=== PATIENT | female | born 1935 | race Asian ===

== ENCOUNTER 2017-01-21 13:03 | Inpatient (IN) | payer OTHER, MEDICARE ==
[~2017-01-21] VITALS: Ht 160 cm; Wt 65.3 kg
[2017-01-21] VITALS (10 sets, daily range): BP systolic 114–139
[2017-01-21] MEDS ORDERED: DILTIAZEM HCL 25 MG/5 ML VIAL IVP ONE (13:15)
[2017-01-21] MEDS ORDERED: DILTIAZEM HCL 125 MG/25 ML VIAL IV ONE (13:16)
[2017-01-21] MEDS ORDERED: ADENOSINE 6MG/2ML VIAL ONE (13:33)
[2017-01-21 13:35] LABS: BASOPHILS # (AUTO) 0.1 K/uL (0.0-0.2); BASOPHILS % (AUTO) 1.4 % (0.0-2.0); LYMPHOCYTES # (AUTO) 1.1 K/uL (1.0-5.5); LYMPHOCYTES % (AUTO) 12.7 % (20.5-51.5); MEAN CORPUSCULAR HEMOGLOBIN 31 pg (27-31); MEAN CORPUSCULAR HGB CONC 33 % (32-36); MEAN CORPUSCULAR VOLUME 92 fL (79.0-98.0); MONOCYTES % (AUTO) 11.7 % (1.7-9.3); NEUTROPHILS # (AUTO) 6.2 K/uL (1.8-7.7); NEUTROPHILS % (AUTO) 74.2 % (40.0-70.0); PLATELET COUNT (AUTO) 174 K/uL (130-430); RED BLOOD CELL COUNT(AUTO) 3.61 MIL/uL (4.2-6.2); RED CELL DISTRIBUTION WIDTH 12.4 % (9.0-15.0); WHITE BLOOD COUNT (AUTO) 8.4 K/uL (4.8-10.8)
[2017-01-21 13:41] LABS: ANION GAP 23 (5-15); CALCIUM 8.1 mg/dL (8.4-11.0); CHLORIDE 107 mmol/L (98-107); POTASSIUM 4.9 mmol/L (3.5-5.1); SODIUM SERUM 141 mmol/L (136-145); UREA NITROGEN, BLOOD 63 mg/dL (8-21)
[2017-01-21 13:45] LABS: GLUCOSE 408 mg/dL (70-99)
[2017-01-21 13:47] LABS: ALANINE AMINOTRANSFERASE 90 U/L (12-78); ALBUMIN 3.5 g/dL (3.4-4.8); ASPARTATE AMINOTRANSFERASE 87 U/L (10-37); CREATINE KINASE, TOTAL 448 U/L (26-192); TOTAL BILIRUBIN 0.8 mg/dL (0.0-1.0); TOTAL PROTEIN, SERUM 6.1 g/dL (6.4-8.3)
[2017-01-21 13:52] LABS: INR 1.2 (0.8-1.2); PROTHROMBIN TIME 13.3 SECS (9.5-12.5)
[2017-01-21] MEDS ORDERED: NS 500 ML IV ONE ×2 (14:30→18:30)
[2017-01-21] MEDS ORDERED: INSULIN REGULAR, HUMAN 10 UNITS/0.1 ML INJ IVP ONE (14:30)
[2017-01-21 14:31] LABS: CKMB RELATIVE INDEX 0.8 (0.0-2.9); CREATINE KINASE MB 3.8 ng/mL (0-3.6)
[2017-01-21] MEDS ORDERED: COMMUNICATION ORDER XX ONE (14:45)
[2017-01-21] MEDS ORDERED: NACL 0.9% 1,000 ML IV SCH (17:30)
[2017-01-21] MEDS ORDERED: DEXTROSE 50% JECT 50 ML DISP.SYRIN IVP PRN (18:00)
[2017-01-21] MEDS ORDERED: LORazepam 2 MG/ML VIAL ONE (18:08)
[2017-01-21] MEDS ORDERED: 0.45% NACL 1,000 ML IV SCH (18:15)
[2017-01-21] MEDS ORDERED: LEVOFLOXACIN 500 MG/D5W 100 ML IV ONE (18:15)
[2017-01-21] MEDS: NACL 0.9% 1,000 ML IV SCH (18:42)
[2017-01-21] MEDS: INSULIN REGULAR, HUMAN 100 UNITS/ML, 10 ML VIAL (novoLIN R) SUBCUT PRN (20:33)
[2017-01-21] MEDS: HEPARIN SODIUM,PORCINE 5000 UNITS/ML VIAL SUBCUT SCH (20:34)
[2017-01-21] MEDS: cefTRIAXone 1 GM in D5W 50 ML IV SCH (20:35)
[2017-01-21 22:29] LABS: BILIRUBIN,URINE NEGATIVE (NEGATIVE); BLOOD, URINE 3+ (NEGATIVE); COLOR,URINE YELLOW (YELLOW); GLUCOSE,URINE 3+ (NEGATIVE); KETONES,URINE 2+ (NEGATIVE); LEUKOCYTE ESTERASE ,URINE NEGATIVE (NEGATIVE); NITRITE, URINE NEGATIVE (NEGATIVE); PH,URINE 5.5 (5.0-8.0); PROTEIN URINE TRACE (NEGATIVE); UROBILINOGEN,URINE 0.2 (0.2-1.0)
[2017-01-21 22:42] LABS: CLARITY/URINE HAZY (CLEAR)
[2017-01-21 22:43] LABS: BACTERIA,URINE FEW /HPF (None Seen); MUCUS,URINE None Seen /LPF (None Seen); WBC,URINE 0-3 /HPF (0-3)
[2017-01-22] VITALS (22 sets, daily range): BP systolic 95–141
[2017-01-22] MEDS: NACL 0.9% 1,000 ML IV SCH ×4 (00:55→20:55)
[2017-01-22] MEDS: DILTIAZEM HCL 125 MG in D5W 100 ML IV PRN ×2 (02:30→07:43)
[2017-01-22] MEDS: LORazepam 2 MG/ML VIAL IVP PRN ×3 (04:08→14:05)
[2017-01-22] MEDS: HALOPERIDOL LACTATE 5 MG/ML VIAL IVP PRN ×2 (06:25→13:51)
[2017-01-22] MEDS: INSULIN REGULAR, HUMAN 100 UNITS/ML, 10 ML VIAL (novoLIN R) SUBCUT PRN ×4 (06:31→22:04)
[2017-01-22 07:14] LABS: BASOPHILS % (AUTO) 0.3 % (0.0-2.0); EOSINOPHILS % (AUTO) 0.1 % (0.0-4.0); HEMATOCRIT 32.9 % (36-48); HEMOGLOBIN 10.9 g/dL (12.0-16.0); LYMPHOCYTES # (AUTO) 1.4 K/uL (1.0-5.5); LYMPHOCYTES % (AUTO) 12.4 % (20.5-51.5); MEAN CORPUSCULAR HEMOGLOBIN 31 pg (27-31); MEAN CORPUSCULAR HGB CONC 33 % (32-36); MEAN CORPUSCULAR VOLUME 92 fL (79.0-98.0); MONOCYTES # (AUTO) 1.4 K/uL (0.0-1.0); MONOCYTES % (AUTO) 12.7 % (1.7-9.3); NEUTROPHILS # (AUTO) 8.6 K/uL (1.8-7.7); NEUTROPHILS % (AUTO) 74.5 % (40.0-70.0); PLATELET COUNT (AUTO) 146 K/uL (130-430); RED BLOOD CELL COUNT(AUTO) 3.59 MIL/uL (4.2-6.2); RED CELL DISTRIBUTION WIDTH 12.5 % (9.0-15.0); WHITE BLOOD COUNT (AUTO) 11.4 K/uL (4.8-10.8)
[2017-01-22 07:40] LABS: ALANINE AMINOTRANSFERASE 148 U/L (12-78); ANION GAP 13 (5-15); ASPARTATE AMINOTRANSFERASE 119 U/L (10-37); CHLORIDE 111 mmol/L (98-107); CHOLESTEROL 97 mg/dL (<200); CREATININE 1.34 mg/dL (0.55-1.30); FREE T4 (FREE THYROXINE) 6.2 ng/dL (0.6-1.6); GLUCOSE 317 mg/dL (70-99); HDL CHOLESTEROL 33 mg/dL (>55); LDL CHOLESTEROL 59 mg/dL (<100); POTASSIUM 4.4 mmol/L (3.5-5.1); SODIUM SERUM 139 mmol/L (136-145); TOTAL BILIRUBIN 0.5 mg/dL (0.0-1.0); TOTAL PROTEIN, SERUM 5.7 g/dL (6.4-8.3); TRIGLYCERIDES 99 mg/dL (30-150); UREA NITROGEN, BLOOD 78 mg/dL (8-21)
[2017-01-22 07:54] LABS: THYROID STIMULATING HORMONE < 0.01 uIu/mL (0.34-4.82)
[2017-01-22] MEDS ORDERED: LORazepam 2 MG/ML VIAL IVP ONE (09:45)
[2017-01-22] MEDS ORDERED: METOPROLOL TARTRATE 5 MG/5 ML VIAL IVP PRN (10:00)
[2017-01-22] MEDS ORDERED: PROPRANOLOL HCL 10 MG TABLET (INDERAL) PO ONE (10:00)
[2017-01-22] MEDS ORDERED: METOPROLOL TARTRATE 5 MG/5 ML VIAL ONE ×2 (10:10→10:27)
[2017-01-22] MEDS: HEPARIN SODIUM,PORCINE 5000 UNITS/ML VIAL SUBCUT SCH ×2 (10:20→21:33)
[2017-01-22] MEDS ORDERED: SITA100T7 PO (11:09)
[2017-01-22] MEDS ORDERED: CIPR7.5D OT (11:09)
[2017-01-22] MEDS ORDERED: ACAR50TA5 PO (11:09)
[2017-01-22] MEDS ORDERED: PRAV10TA37 PO (11:09)
[2017-01-22] MEDS ORDERED: DICY10CA13 PO (11:09)
[2017-01-22] MEDS ORDERED: GLIM4TAB PO (11:09)
[2017-01-22] MEDS ORDERED: ESOM40CA PO ×2 (11:09)
[2017-01-22] MEDS ORDERED: PRAS5TAB3 PO (11:09)
[2017-01-22] MEDS ORDERED: ESCI5TAB10 PO (11:09)
[2017-01-22] MEDS ORDERED: LOSA25TA11 PO (11:09)
[2017-01-22] MEDS: PROPRANOLOL HCL 10 MG TABLET (INDERAL) PO SCH ×2 (14:00→21:57)
[2017-01-22] MEDS ORDERED: HALOPERIDOL LACTATE 5 MG/ML VIAL IVP PRN (15:00)
[2017-01-22] MEDS: cefTRIAXone 1 GM in D5W 50 ML IV SCH (21:32)
[2017-01-23] VITALS (26 sets, daily range): BP systolic 79–150
[2017-01-23] MEDS ORDERED: FUROSEMIDE 20 MG/2 ML VIAL IVP ONE
[2017-01-23] MEDS: NACL 0.9% 1,000 ML IV SCH (01:51)
[2017-01-23] MEDS: PROPRANOLOL HCL 10 MG TABLET (INDERAL) PO SCH ×3 (06:06→22:01)
[2017-01-23 07:16] LABS: ALANINE AMINOTRANSFERASE 784 U/L (12-78); ALBUMIN 3.3 g/dL (3.4-4.8); ANION GAP 13 (5-15); CALCIUM 8.2 mg/dL (8.4-11.0); CHLORIDE 113 mmol/L (98-107); CREATININE 2.08 mg/dL (0.55-1.30); GLUCOSE 54 mg/dL (70-99); SODIUM SERUM 141 mmol/L (136-145); TOTAL BILIRUBIN 1.1 mg/dL (0.0-1.0); UREA NITROGEN, BLOOD 93 mg/dL (8-21)
[2017-01-23 07:33] LABS: ASPARTATE AMINOTRANSFERASE 1327 U/L (10-37)
[2017-01-23 08:15] LABS: BASOPHILS % (AUTO) 0.2 % (0.0-2.0); HEMATOCRIT 39.8 % (36-48); HEMOGLOBIN 13.2 g/dL (12.0-16.0); LYMPHOCYTES % (AUTO) 5.2 % (20.5-51.5); MEAN CORPUSCULAR HEMOGLOBIN 31 pg (27-31); MEAN CORPUSCULAR HGB CONC 33 % (32-36); MEAN CORPUSCULAR VOLUME 93 fL (79.0-98.0); NEUTROPHILS # (AUTO) 15.9 K/uL (1.8-7.7); NEUTROPHILS % (AUTO) 83.8 % (40.0-70.0); PLATELET COUNT (AUTO) 106 K/uL (130-430); RED BLOOD CELL COUNT(AUTO) 4.26 MIL/uL (4.2-6.2); WHITE BLOOD COUNT (AUTO) 18.9 K/uL (4.8-10.8)
[2017-01-23] MEDS: HEPARIN SODIUM,PORCINE 5000 UNITS/ML VIAL SUBCUT SCH ×2 (08:31→20:45)
[2017-01-23 09:17] LABS: MONOCYTES % (AUTO) 10.8 % (1.7-9.3)
[2017-01-23] MEDS ORDERED: LEVOFLOXACIN 500 MG/D5W 100 ML IV ONE (09:30)
[2017-01-23] MEDS ORDERED: D5W 1,000 ML IV SCH (09:30)
[2017-01-23] MEDS ORDERED: HYDROCORTISONE SOD SUCC 100 MG/2 ML VIAL IVP ONE (09:30)
[2017-01-23] MEDS ORDERED: DEXTROSE 50% JECT 50 ML DISP.SYRIN IVP ONE (10:15)
[2017-01-23] MEDS ORDERED: SODIUM BICARBONATE 8.4% JECT 50 MEQ/50 ML SYRINGE ONE ×3 (10:29→14:49)
[2017-01-23] MEDS: D5/0.45 NS 1,000 ML IV SCH ×2 (10:32→19:53)
[2017-01-23 10:36] LABS: BLOOD GAS BASE EXCESS -20.8 mmol/L (-3.0-3.0); BLOOD GAS PH 7.069 (7.350-7.450)
[2017-01-23 10:37] LABS: ABG TOTAL HEMOGLOBIN 12.7 G/dL (12.0-18.0); BLOOD GAS COHb% 0.2 % (0.5-1.5); BLOOD GAS HHB 7.8 % (0.0-6.0); BLOOD O2Hb% 91.8 % (94.0-97.0)
[2017-01-23] MEDS ORDERED: SODIUM BICARBONATE 8.4% VIAL 50 MEQ/50 ML VIAL INJ ONE (10:45)
[2017-01-23 10:56] LABS: ANION GAP 15 (5-15); CALCIUM 8.1 mg/dL (8.4-11.0); CHLORIDE 113 mmol/L (98-107); CREATININE 2.59 mg/dL (0.55-1.30); FREE T4 (FREE THYROXINE) 5.7 ng/dL (0.6-1.6); GLUCOSE 121 mg/dL (70-99); SODIUM SERUM 140 mmol/L (136-145); UREA NITROGEN, BLOOD 97 mg/dL (8-21)
[2017-01-23] MEDS ORDERED: MIDAZOLAM HCL 2 MG/2 ML VIAL (VERSED) ONE (10:56)
[2017-01-23 11:10] LABS: POTASSIUM 6.4 mmol/L (3.5-5.1)
[2017-01-23] MEDS ORDERED: SODIUM POLYSTYRENE SULFONATE 15 GM/60 ML UDBTL NG ONE (11:15)
[2017-01-23] MEDS: SODIUM BICARBONATE 8.4% JECT 100 MEQ in D5W 1,000 ML IV SCH ×2 (11:25→18:48)
[2017-01-23 11:33] LABS: INR 2.6 (0.8-1.2); PROTHROMBIN TIME 28.6 SECS (9.5-12.5)
[2017-01-23] MEDS: CEFEPIME 1 GM in D5W 50 ML IV SCH (11:36)
[2017-01-23 11:37] LABS: THYROID STIMULATING HORMONE 0.08 uIu/mL (0.34-4.82)
[2017-01-23] MEDS ORDERED: NOREPINEPHRINE BITARTRATE 4 MG in NS 246 ML IV PRN (12:30)
[2017-01-23] MEDS ORDERED: PANTOPRAZOLE SODIUM 40 MG/VIAL (PROTONIX) IVP ONE (12:30)
[2017-01-23] MEDS ORDERED: NOREPINEPHRINE 4 MG/4 ML VIAL IV ONE (12:37)
[2017-01-23] MEDS ORDERED: PROPYLTHIOURACIL 50 MG TABLET PO ONE (12:57)
[2017-01-23] MEDS: LORazepam 2 MG/ML VIAL IVP PRN ×3 (12:59→21:24)
[2017-01-23 13:20] LABS: BLOOD GAS BASE EXCESS -14.4 mmol/L (-3.0-3.0); BLOOD GAS PH 7.275 (7.350-7.450)
[2017-01-23 13:21] LABS: BLOOD GAS HHB 1.3 % (0.0-6.0); BLOOD O2Hb% 98.5 % (94.0-97.0)
[2017-01-23] MEDS: LEVALBUTEROL HCL 0.63 MG/3 ML VIAL.NEB INH SCH ×2 (13:23→19:40)
[2017-01-23] MEDS: IPRATROPIUM BROM 0.5 MG/2.5 ML VIAL.NEB (ATROVENT) INH SCH ×2 (13:23→19:39)
[2017-01-23] MEDS ORDERED: SODIUM BICARBONATE 8.4% JECT 50 MEQ/50 ML SYRINGE IVP ONE (14:30)
[2017-01-23] MEDS: INSULIN REGULAR, HUMAN 100 UNITS/ML, 10 ML VIAL (novoLIN R) SUBCUT PRN ×3 (17:09→23:26)
[2017-01-23 18:22] LABS: ANION GAP 22 (5-15); CALCIUM 7.4 mg/dL (8.4-11.0); CHLORIDE 112 mmol/L (98-107); CREATININE 2.94 mg/dL (0.55-1.30); POTASSIUM 4.5 mmol/L (3.5-5.1); SODIUM SERUM 145 mmol/L (136-145)
[2017-01-23 18:25] LABS: GLUCOSE 460 mg/dL (70-99)
[2017-01-23 18:26] LABS: UREA NITROGEN, BLOOD 105 mg/dL (8-21)
[2017-01-23] MEDS ORDERED: D5/0.45 NS 1,000 ML IV SCH (21:33)
[2017-01-23] MEDS: PROPYLTHIOURACIL 50 MG TABLET PO SCH (22:17)
[2017-01-23] MEDS ORDERED: PROPYLTHIOURACIL 50 MG TABLET ONE ×2 (22:18→22:23)
[2017-01-23] MEDS ORDERED: INSULIN REGULAR, HUMAN 100 UNITS in NS 99 ML IV PRN ×2 (23:45)
[2017-01-24] VITALS (30 sets, daily range): BP systolic 91–143
[2017-01-24] MEDS: LORazepam 2 MG/ML VIAL IVP PRN ×2 (00:29→22:32)
[2017-01-24] MEDS: IPRATROPIUM BROM 0.5 MG/2.5 ML VIAL.NEB (ATROVENT) INH SCH ×4 (01:03→20:01)
[2017-01-24] MEDS: LEVALBUTEROL HCL 0.63 MG/3 ML VIAL.NEB INH SCH ×4 (01:03→20:01)
[2017-01-24] MEDS: SODIUM BICARBONATE 8.4% JECT 100 MEQ in D5W 1,000 ML IV SCH (02:47)
[2017-01-24] MEDS: PROPRANOLOL HCL 10 MG TABLET (INDERAL) PO SCH ×3 (05:49→22:15)
[2017-01-24 06:45] LABS: INR 2.6 (0.8-1.2); PROTHROMBIN TIME 29.3 SECS (9.5-12.5)
[2017-01-24 07:00] LABS: ALANINE AMINOTRANSFERASE 2149 U/L (12-78); ALBUMIN 2.2 g/dL (3.4-4.8); ANION GAP 13 (5-15); CHLORIDE 106 mmol/L (98-107); CREATININE 2.66 mg/dL (0.55-1.30); SODIUM SERUM 142 mmol/L (136-145); TOTAL BILIRUBIN 1.3 mg/dL (0.0-1.0); TOTAL PROTEIN, SERUM 4.3 g/dL (6.4-8.3)
[2017-01-24 07:04] LABS: BASOPHILS # (AUTO) 0.1 K/uL (0.0-0.2); BASOPHILS % (AUTO) 0.4 % (0.0-2.0); EOSINOPHILS % (AUTO) 0.1 % (0.0-4.0); HEMATOCRIT 29.7 % (36-48); HEMOGLOBIN 9.7 g/dL (12.0-16.0); LYMPHOCYTES # (AUTO) 1.2 K/uL (1.0-5.5); LYMPHOCYTES % (AUTO) 7.7 % (20.5-51.5); MEAN CORPUSCULAR HEMOGLOBIN 30 pg (27-31); MEAN CORPUSCULAR HGB CONC 33 % (32-36); MEAN CORPUSCULAR VOLUME 92 fL (79.0-98.0); MONOCYTES # (AUTO) 0.7 K/uL (0.0-1.0); MONOCYTES % (AUTO) 4.4 % (1.7-9.3); NEUTROPHILS # (AUTO) 13.5 K/uL (1.8-7.7); NEUTROPHILS % (AUTO) 87.4 % (40.0-70.0); RED BLOOD CELL COUNT(AUTO) 3.23 MIL/uL (4.2-6.2); RED CELL DISTRIBUTION WIDTH 12.6 % (9.0-15.0)
[2017-01-24 07:09] LABS: CALCIUM 6.7 mg/dL (8.4-11.0); GLUCOSE 615 mg/dL (70-99); POTASSIUM 2.9 mmol/L (3.5-5.1)
[2017-01-24 07:10] LABS: UREA NITROGEN, BLOOD 104 mg/dL (8-21)
[2017-01-24 07:21] LABS: WHITE BLOOD COUNT (AUTO) 15.5 K/uL (4.8-10.8)
[2017-01-24 07:25] LABS: ASPARTATE AMINOTRANSFERASE 3841 U/L (10-37)
[2017-01-24 08:05] LABS: ABG TOTAL HEMOGLOBIN 10.6 G/dL (12.0-18.0); BLOOD GAS BASE EXCESS 2.2 mmol/L (-3.0-3.0); BLOOD GAS COHb% 0.3 % (0.5-1.5); BLOOD GAS HHB 2.3 % (0.0-6.0); BLOOD GAS PH 7.497 (7.350-7.450)
[2017-01-24] MEDS: PROPYLTHIOURACIL 50 MG TABLET PO SCH (08:11)
[2017-01-24] MEDS: PANTOPRAZOLE SODIUM 40 MG/VIAL (PROTONIX) IVP SCH (08:44)
[2017-01-24] MEDS: HEPARIN SODIUM,PORCINE 5000 UNITS/ML VIAL SUBCUT SCH ×2 (08:47→21:09)
[2017-01-24 09:14] LABS: PLATELET COUNT (AUTO) 55 K/uL (130-430)
[2017-01-24] MEDS ORDERED: POTASSIUM CHLORIDE 20 MEQ/PKT PACKET PO ONE (09:15)
[2017-01-24] MEDS ORDERED: KCL 20 mEq in 0.45% NS 1000 mL 1,000 ML IV SCH (09:30)
[2017-01-24] MEDS ORDERED: PROPRANOLOL HCL 10 MG TABLET (INDERAL) PO ONE (10:30)
[2017-01-24] MEDS: KCL 20 mEq in 0.45% NS 1000 mL 1,000 ML IV SCH ×2 (12:33→22:47)
[2017-01-24] MEDS: CEFEPIME 1 GM in D5W 50 ML IV SCH (12:33)
[2017-01-24] MEDS: METHIMAZOLE 5 MG TABLET NG SCH ×2 (13:38→22:14)
[2017-01-24] MEDS: metroNIDAZOLE 500 mg/NS 100 ML IV SCH ×2 (13:39→21:52)
[2017-01-24 14:06] LABS: ANION GAP 9 (5-15); CHLORIDE 108 mmol/L (98-107); CREATININE 2.31 mg/dL (0.55-1.30); GLUCOSE 341 mg/dL (70-99); POTASSIUM 3.7 mmol/L (3.5-5.1); SODIUM SERUM 144 mmol/L (136-145)
[2017-01-24 14:15] LABS: CALCIUM 6.8 mg/dL (8.4-11.0); UREA NITROGEN, BLOOD 103 mg/dL (8-21)
[2017-01-24] MEDS ORDERED: INSULIN REGULAR, HUMAN 100 UNITS/ML, 10 ML VIAL (novoLIN R) SUBCUT PRN (16:45)
[2017-01-24] MEDS ORDERED: CALCIUM GLUCONATE 1 GM/10 ML VIAL IV ONE (16:45)
[2017-01-24] MEDS ORDERED: INSULIN REGULAR, HUMAN 100 UNITS in NS 99 ML IV SCH ×2 (17:00)
[2017-01-24] MEDS ORDERED: CALCIUM GLUCONATE 1 GM in D5W 50 ML IV ONE (17:15)
[2017-01-24] MEDS: HYDROCORTISONE SOD SUCC 100 MG/2 ML VIAL IVP SCH (17:23)
[2017-01-24] MEDS: ACETAMINOPHEN 650 MG/20.3 ML UDC NG PRN (17:39)
[2017-01-24 20:35] LABS: ANION GAP 11 (5-15); CALCIUM 7.1 mg/dL (8.4-11.0); CHLORIDE 107 mmol/L (98-107); GLUCOSE 378 mg/dL (70-99); POTASSIUM 3.7 mmol/L (3.5-5.1); SODIUM SERUM 141 mmol/L (136-145)
[2017-01-24 20:42] LABS: UREA NITROGEN, BLOOD 102 mg/dL (8-21)
[2017-01-25] VITALS (33 sets, daily range): BP systolic 91–175
[2017-01-25] MEDS: LEVALBUTEROL HCL 0.63 MG/3 ML VIAL.NEB INH SCH ×4 (00:10→19:35)
[2017-01-25] MEDS: IPRATROPIUM BROM 0.5 MG/2.5 ML VIAL.NEB (ATROVENT) INH SCH ×4 (00:10→19:35)
[2017-01-25] MEDS: HYDROCORTISONE SOD SUCC 100 MG/2 ML VIAL IVP SCH ×4 (00:19→17:59)
[2017-01-25] MEDS: LORazepam 2 MG/ML VIAL IVP PRN (03:25)
[2017-01-25] MEDS: metroNIDAZOLE 500 mg/NS 100 ML IV SCH (05:56)
[2017-01-25] MEDS: METHIMAZOLE 5 MG TABLET NG SCH ×3 (05:57→22:34)
[2017-01-25] MEDS: PROPRANOLOL HCL 10 MG TABLET (INDERAL) PO SCH ×3 (05:59→22:35)
[2017-01-25 06:25] LABS: HEMATOCRIT 30.9 % (36-48); HEMOGLOBIN 10.1 g/dL (12.0-16.0); MEAN CORPUSCULAR HEMOGLOBIN 31 pg (27-31); MEAN CORPUSCULAR HGB CONC 33 % (32-36); MEAN CORPUSCULAR VOLUME 93 fL (79.0-98.0); RED BLOOD CELL COUNT(AUTO) 3.32 MIL/uL (4.2-6.2); RED CELL DISTRIBUTION WIDTH 12.9 % (9.0-15.0); WHITE BLOOD COUNT (AUTO) 19.4 K/uL (4.8-10.8)
[2017-01-25 06:38] LABS: ALANINE AMINOTRANSFERASE 1643 U/L (12-78); ALBUMIN 2.1 g/dL (3.4-4.8); ANION GAP 6 (5-15); CHLORIDE 111 mmol/L (98-107); CREATININE 1.92 mg/dL (0.55-1.30); GLUCOSE 231 mg/dL (70-99); PHOSPHORUS 2.2 mg/dL (2.7-4.5); POTASSIUM 3.5 mmol/L (3.5-5.1); SODIUM SERUM 146 mmol/L (136-145); TOTAL BILIRUBIN 2.9 mg/dL (0.0-1.0); TOTAL PROTEIN, SERUM 4.2 g/dL (6.4-8.3); UREA NITROGEN, BLOOD 99 mg/dL (8-21)
[2017-01-25 06:39] LABS: PLATELET COUNT (AUTO) 45 K/uL (130-430)
[2017-01-25 06:52] LABS: IRON (SERUM) 133 mcg/dL (37-145); TOTAL IRON BIND. CAPACITY 111 ug/dL (250-450)
[2017-01-25 07:10] LABS: ASPARTATE AMINOTRANSFERASE 1311 U/L (10-37)
[2017-01-25 07:17] LABS: BLOOD GAS PH 7.594 (7.350-7.450)
[2017-01-25 07:18] LABS: ABG TOTAL HEMOGLOBIN 11.9 G/dL (12.0-18.0); BLOOD GAS BASE EXCESS 5.2 mmol/L (-3.0-3.0); BLOOD GAS COHb% 0.2 % (0.5-1.5); BLOOD GAS HHB 1.8 % (0.0-6.0); BLOOD O2Hb% 97.7 % (94.0-97.0)
[2017-01-25] MEDS: PANTOPRAZOLE SODIUM 40 MG/VIAL (PROTONIX) IVP SCH (08:18)
[2017-01-25] MEDS: ACETAMINOPHEN 650 MG/20.3 ML UDC NG PRN (08:18)
[2017-01-25] MEDS: HEPARIN SODIUM,PORCINE 5000 UNITS/ML VIAL SUBCUT SCH (08:23)
[2017-01-25] MEDS: KCL 20 mEq in 0.45% NS 1000 mL 1,000 ML IV SCH ×2 (08:28→17:59)
[2017-01-25 08:31] LABS: ATYPICAL LYMPHOCYTES % 0 % (0-0); BAND % (MANUAL) 9 % (0-6); BASOPHILS % (MANUAL) 0 % (0-2); CORRECTED WHITE BLOOD COUNT 18.5 K/uL (4.5-11.0); EOSINOPHILS % (MANUAL) 0 % (0-7); LYMPHOCYTES % (MANUAL) 9 % (20-46); MONOCYTES % (MANUAL) 3 % (0-11)
[2017-01-25] MEDS ORDERED: INSULIN ASPART 100 UNITS/ML, 10 ML VIAL SUBCUT ONE (09:15)
[2017-01-25] MEDS: INSULIN NPH 100 UNITS/ML 10 ML VIAL SUBCUT SCH ×2 (10:26→21:32)
[2017-01-25] MEDS: CEFEPIME 1 GM in D5W 50 ML IV SCH (12:18)
[2017-01-25] MEDS: METOPROLOL TARTRATE 5 MG/5 ML VIAL IVP PRN (12:18)
[2017-01-25] MEDS ORDERED: COMMUNICATION ORDER XX PRN (12:30)
[2017-01-25] MEDS ORDERED: metroNIDAZOLE 250 mg/NS 50 ML IV SCH (14:00)
[2017-01-25] MEDS ORDERED: METOPROLOL TARTRATE 5 MG/5 ML VIAL IVP ONE (14:15)
[2017-01-25] MEDS ORDERED: cefTRIAXone 1 GM in D5W 50 ML IV SCH (18:30)
[2017-01-25] MEDS ORDERED: PROPRANOLOL HCL 10 MG TABLET (INDERAL) ONE (21:23)
[2017-01-25] MEDS: ANTIFUNGAL CLEAR OINTMENT TP SCH (21:33)
[2017-01-25] MEDS: metroNIDAZOLE 250 mg/NS 50 ML IV SCH (21:35)
[2017-01-25] MEDS: INSULIN ASPART 100 UNITS/ML, 10 ML VIAL (NovoLOG) SUBCUT PRN (23:00)
[2017-01-26] VITALS (30 sets, daily range): BP systolic 98–176
[2017-01-26] MEDS: HYDROCORTISONE SOD SUCC 100 MG/2 ML VIAL IVP SCH ×4 (00:18→18:44)
[2017-01-26] MEDS: ACETAMINOPHEN 650 MG/20.3 ML UDC NG PRN ×5 (00:18→18:42)
[2017-01-26] MEDS: IPRATROPIUM BROM 0.5 MG/2.5 ML VIAL.NEB (ATROVENT) INH SCH ×3 (01:07→19:44)
[2017-01-26] MEDS: LEVALBUTEROL HCL 0.63 MG/3 ML VIAL.NEB INH SCH ×3 (01:07→19:44)
[2017-01-26] MEDS: INSULIN ASPART 100 UNITS/ML, 10 ML VIAL (NovoLOG) SUBCUT PRN ×2 (03:12→06:39)
[2017-01-26] MEDS: METOPROLOL TARTRATE 5 MG/5 ML VIAL IVP PRN ×5 (03:19→21:02)
[2017-01-26] MEDS: KCL 20 mEq in 0.45% NS 1000 mL 1,000 ML IV SCH ×2 (03:54→16:14)
[2017-01-26] MEDS: metroNIDAZOLE 250 mg/NS 50 ML IV SCH ×3 (05:42→21:33)
[2017-01-26] MEDS: PROPRANOLOL HCL 10 MG TABLET (INDERAL) PO SCH ×3 (05:43→21:34)
[2017-01-26] MEDS: METHIMAZOLE 5 MG TABLET NG SCH ×3 (05:44→21:33)
[2017-01-26] MEDS ORDERED: PROPRANOLOL HCL 10 MG TABLET (INDERAL) ONE (05:47)
[2017-01-26 06:44] LABS: BASOPHILS % (AUTO) 0.2 % (0.0-2.0); EOSINOPHILS % (AUTO) 0.1 % (0.0-4.0); HEMATOCRIT 36.3 % (36-48); HEMOGLOBIN 12.1 g/dL (12.0-16.0); LYMPHOCYTES # (AUTO) 1.2 K/uL (1.0-5.5); MEAN CORPUSCULAR HEMOGLOBIN 31 pg (27-31); MEAN CORPUSCULAR HGB CONC 33 % (32-36); MEAN CORPUSCULAR VOLUME 93 fL (79.0-98.0); MONOCYTES # (AUTO) 0.6 K/uL (0.0-1.0); MONOCYTES % (AUTO) 3.3 % (1.7-9.3); NEUTROPHILS # (AUTO) 15.2 K/uL (1.8-7.7); NEUTROPHILS % (AUTO) 89.4 % (40.0-70.0); RED BLOOD CELL COUNT(AUTO) 3.91 MIL/uL (4.2-6.2); RED CELL DISTRIBUTION WIDTH 13.1 % (9.0-15.0)
[2017-01-26 06:58] LABS: INR 1.8 (0.8-1.2); PROTHROMBIN TIME 19.5 SECS (9.5-12.5)
[2017-01-26 07:13] LABS: ALANINE AMINOTRANSFERASE 1318 U/L (12-78); ALBUMIN 2.4 g/dL (3.4-4.8); ANION GAP 10 (5-15); ASPARTATE AMINOTRANSFERASE 393 U/L (10-37); CALCIUM 7.3 mg/dL (8.4-11.0); CHLORIDE 112 mmol/L (98-107); CREATININE 1.51 mg/dL (0.55-1.30); FREE T4 (FREE THYROXINE) 5.2 ng/dL (0.6-1.6); GLUCOSE 348 mg/dL (70-99); LACTATE DEHYDROGENASE 493 U/L (81-234); POTASSIUM 3.8 mmol/L (3.5-5.1); SODIUM SERUM 147 mmol/L (136-145); TOTAL BILIRUBIN 2.9 mg/dL (0.0-1.0); TOTAL PROTEIN, SERUM 4.9 g/dL (6.4-8.3); UREA NITROGEN, BLOOD 87 mg/dL (8-21)
[2017-01-26 07:19] LABS: PLATELET COUNT (AUTO) 63 K/uL (130-430)
[2017-01-26 07:47] LABS: RETICULOCYTE COUNT 2.8 % (0.5-1.5)
[2017-01-26] MEDS: PANTOPRAZOLE SODIUM 40 MG/VIAL (PROTONIX) IVP SCH (08:39)
[2017-01-26] MEDS: INSULIN NPH 100 UNITS/ML 10 ML VIAL SUBCUT SCH (08:54)
[2017-01-26] MEDS: ANTIFUNGAL CLEAR OINTMENT TP SCH ×2 (09:04→22:19)
[2017-01-26 10:04] LABS: ABG TOTAL HEMOGLOBIN 12.2 G/dL (12.0-18.0); BLOOD GAS BASE EXCESS 3.1 mmol/L (-3.0-3.0); BLOOD GAS PH 7.551 (7.350-7.450); BLOOD O2Hb% 95.5 % (94.0-97.0)
[2017-01-26 10:05] LABS: BLOOD GAS COHb% 0.3 % (0.5-1.5); BLOOD GAS HHB 3.8 % (0.0-6.0)
[2017-01-26] MEDS ORDERED: FLUCONAZOLE 200 mg/ NS 100 ML IV SCH (11:00)
[2017-01-26] MEDS: CEFEPIME 1 GM in D5W 50 ML IV SCH (13:03)
[2017-01-26 13:26] LABS: FOLATE (FOLIC ACID) >20.0 ng/mL (>3.0); HEPATITIS A AB, IgM Negative (Negative); HEPATITIS B CORE AB, IgM Negative (Negative); HEPATITIS B SURFACE AG Negative (Negative)
[2017-01-27] VITALS (35 sets, daily range): BP systolic 107–168
[2017-01-27] MEDS: ACETAMINOPHEN 650 MG/20.3 ML UDC NG PRN ×3 (00:15→10:58)
[2017-01-27] MEDS: HYDROCORTISONE SOD SUCC 100 MG/2 ML VIAL IVP SCH ×5 (00:28→23:57)
[2017-01-27] MEDS: INSULIN ASPART 100 UNITS/ML, 10 ML VIAL (NovoLOG) SUBCUT PRN ×4 (00:30→17:35)
[2017-01-27] MEDS: IPRATROPIUM BROM 0.5 MG/2.5 ML VIAL.NEB (ATROVENT) INH SCH ×4 (00:46→20:01)
[2017-01-27] MEDS: LEVALBUTEROL HCL 0.63 MG/3 ML VIAL.NEB INH SCH ×4 (00:47→20:01)
[2017-01-27] MEDS: METOPROLOL TARTRATE 5 MG/5 ML VIAL IVP PRN ×4 (01:16→23:57)
[2017-01-27] MEDS: KCL 20 mEq in 0.45% NS 1000 mL 1,000 ML IV SCH (03:56)
[2017-01-27] MEDS: metroNIDAZOLE 250 mg/NS 50 ML IV SCH ×3 (05:47→22:09)
[2017-01-27 06:32] LABS: BASOPHILS # (AUTO) 0.1 K/uL (0.0-0.2); BASOPHILS % (AUTO) 0.4 % (0.0-2.0); HEMATOCRIT 38.6 % (36-48); HEMOGLOBIN 12.7 g/dL (12.0-16.0); LYMPHOCYTES # (AUTO) 1.5 K/uL (1.0-5.5); LYMPHOCYTES % (AUTO) 7.6 % (20.5-51.5); MEAN CORPUSCULAR HEMOGLOBIN 31 pg (27-31); MEAN CORPUSCULAR HGB CONC 33 % (32-36); MEAN CORPUSCULAR VOLUME 94 fL (79.0-98.0); MONOCYTES # (AUTO) 1.1 K/uL (0.0-1.0); MONOCYTES % (AUTO) 5.7 % (1.7-9.3); NEUTROPHILS # (AUTO) 16.4 K/uL (1.8-7.7); NEUTROPHILS % (AUTO) 86.3 % (40.0-70.0); RED BLOOD CELL COUNT(AUTO) 4.12 MIL/uL (4.2-6.2); RED CELL DISTRIBUTION WIDTH 13.8 % (9.0-15.0); WHITE BLOOD COUNT (AUTO) 19.1 K/uL (4.8-10.8)
[2017-01-27 06:45] LABS: ALANINE AMINOTRANSFERASE 718 U/L (12-78); ALBUMIN 2.3 g/dL (3.4-4.8); ANION GAP 9 (5-15); ASPARTATE AMINOTRANSFERASE 137 U/L (10-37); CALCIUM 7.1 mg/dL (8.4-11.0); CHLORIDE 117 mmol/L (98-107); CREATININE 1.33 mg/dL (0.55-1.30); GLUCOSE 248 mg/dL (70-99); POTASSIUM 3.4 mmol/L (3.5-5.1); SODIUM SERUM 151 mmol/L (136-145); TOTAL BILIRUBIN 2.8 mg/dL (0.0-1.0); TOTAL PROTEIN, SERUM 4.7 g/dL (6.4-8.3); UREA NITROGEN, BLOOD 79 mg/dL (8-21)
[2017-01-27] MEDS ORDERED: PROPRANOLOL HCL 10 MG TABLET (INDERAL) ONE (06:52)
[2017-01-27] MEDS: PROPRANOLOL HCL 10 MG TABLET (INDERAL) PO SCH ×2 (06:52→17:02)
[2017-01-27] MEDS ORDERED: INSULIN NPH 100 UNITS/ML 10 ML VIAL SUBCUT SCH ×2 (07:00)
[2017-01-27] MEDS: METHIMAZOLE 5 MG TABLET NG SCH ×2 (07:13→14:05)
[2017-01-27 08:04] LABS: ABG TOTAL HEMOGLOBIN 13.1 G/dL (12.0-18.0); BLOOD GAS BASE EXCESS 1.6 mmol/L (-3.0-3.0); BLOOD GAS COHb% 0.4 % (0.5-1.5); BLOOD GAS HHB 2.7 % (0.0-6.0); BLOOD O2Hb% 96.6 % (94.0-97.0)
[2017-01-27 08:26] LABS: PLATELET COUNT (AUTO) 55 K/uL (130-430)
[2017-01-27] MEDS: PANTOPRAZOLE SODIUM 40 MG/VIAL (PROTONIX) IVP SCH (10:23)
[2017-01-27] MEDS: D5W 1,000 ML IV SCH (10:46)
[2017-01-27] MEDS: ANTIFUNGAL CLEAR OINTMENT TP SCH ×2 (10:46→22:09)
[2017-01-27] MEDS: PIPERACILLIN/TAZO 2.25G/DEX-IS 50 ML IV SCH ×3 (11:05→23:55)
[2017-01-27] MEDS ORDERED: INSULIN NPH 100 UNITS/ML 10 ML VIAL SUBCUT ONE (13:30)
[2017-01-27] MEDS ORDERED: POTASSIUM CHLORIDE 40 MEQ in D5W 250 ML IV ONE (15:15)
[2017-01-28] VITALS (36 sets, daily range): BP systolic 82–161
[2017-01-28] MEDS: INSULIN ASPART 100 UNITS/ML, 10 ML VIAL (NovoLOG) SUBCUT PRN ×4 (00:15→17:34)
[2017-01-28] MEDS: METHIMAZOLE 5 MG TABLET NG SCH ×4 (00:30→22:08)
[2017-01-28] MEDS: ACETAMINOPHEN 650 MG/20.3 ML UDC NG PRN ×3 (00:31→14:02)
[2017-01-28] MEDS ORDERED: PROPRANOLOL HCL (INDERAL LA 60MG) PO ONE (00:34)
[2017-01-28] MEDS ORDERED: PROPRANOLOL HCL 10 MG TABLET (INDERAL) ONE ×3 (00:56→01:08)
[2017-01-28] MEDS: PROPRANOLOL HCL 10 MG TABLET (INDERAL) PO SCH ×5 (01:05→21:55)
[2017-01-28] MEDS: D5W 1,000 ML IV SCH ×2 (01:06→17:32)
[2017-01-28] MEDS: IPRATROPIUM BROM 0.5 MG/2.5 ML VIAL.NEB (ATROVENT) INH SCH ×4 (02:51→19:40)
[2017-01-28] MEDS: LEVALBUTEROL HCL 0.63 MG/3 ML VIAL.NEB INH SCH ×4 (02:53→19:40)
[2017-01-28] MEDS: METOPROLOL TARTRATE 5 MG/5 ML VIAL IVP PRN ×3 (03:49→14:06)
[2017-01-28] MEDS: PIPERACILLIN/TAZO 2.25G/DEX-IS 50 ML IV SCH ×2 (05:32→11:10)
[2017-01-28] MEDS: HYDROCORTISONE SOD SUCC 100 MG/2 ML VIAL IVP SCH ×3 (05:33→17:35)
[2017-01-28] MEDS: metroNIDAZOLE 250 mg/NS 50 ML IV SCH ×2 (06:18→14:25)
[2017-01-28 06:49] LABS: HEMATOCRIT 38.5 % (36-48); HEMOGLOBIN 12.3 g/dL (12.0-16.0); MEAN CORPUSCULAR HEMOGLOBIN 30 pg (27-31); MEAN CORPUSCULAR HGB CONC 32 % (32-36); MEAN CORPUSCULAR VOLUME 94 fL (79.0-98.0); RED BLOOD CELL COUNT(AUTO) 4.08 MIL/uL (4.2-6.2); RED CELL DISTRIBUTION WIDTH 14.8 % (9.0-15.0); WHITE BLOOD COUNT (AUTO) 17.2 K/uL (4.8-10.8)
[2017-01-28 06:54] LABS: ALANINE AMINOTRANSFERASE 397 U/L (12-78); ANION GAP 11 (5-15); ASPARTATE AMINOTRANSFERASE 86 U/L (10-37); CALCIUM 7.1 mg/dL (8.4-11.0); CHLORIDE 116 mmol/L (98-107); CREATININE 1.62 mg/dL (0.55-1.30); FREE T4 (FREE THYROXINE) 3.1 ng/dL (0.6-1.6); GLUCOSE 260 mg/dL (70-99); POTASSIUM 3.6 mmol/L (3.5-5.1); SODIUM SERUM 150 mmol/L (136-145); TOTAL BILIRUBIN 3.4 mg/dL (0.0-1.0); TOTAL PROTEIN, SERUM 4.1 g/dL (6.4-8.3); UREA NITROGEN, BLOOD 96 mg/dL (8-21)
[2017-01-28 07:21] LABS: PLATELET COUNT (AUTO) 45 K/uL (130-430)
[2017-01-28 07:46] LABS: BLOOD GAS PH 7.479 (7.350-7.450)
[2017-01-28 07:47] LABS: ABG TOTAL HEMOGLOBIN 13.3 G/dL (12.0-18.0); BLOOD GAS BASE EXCESS 0.4 mmol/L (-3.0-3.0); BLOOD O2Hb% 96.5 % (94.0-97.0)
[2017-01-28 07:48] LABS: BLOOD GAS COHb% 1.2 % (0.5-1.5)
[2017-01-28 08:10] LABS: BAND % (MANUAL) 1 % (0-6); BASOPHILS % (MANUAL) 0 % (0-2); CORRECTED WHITE BLOOD COUNT 16.1 K/uL (4.5-11.0); EOSINOPHILS % (MANUAL) 0 % (0-7); LYMPHOCYTES % (MANUAL) 4 % (20-46); MONOCYTES % (MANUAL) 1 % (0-11)
[2017-01-28] MEDS: PANTOPRAZOLE SODIUM 40 MG/VIAL (PROTONIX) IVP SCH (08:12)
[2017-01-28] MEDS ORDERED: PHYTONADIONE 5 MG TABLET PO ONE (09:30)
[2017-01-28] MEDS: ANTIFUNGAL CLEAR OINTMENT TP SCH ×2 (10:09→21:53)
[2017-01-28] MEDS ORDERED: FUROSEMIDE 20 MG/2 ML VIAL IVP ONE (10:30)
[2017-01-28] MEDS ORDERED: LOPERAMIDE HCL GT ONE (13:15)
[2017-01-28] MEDS ORDERED: METOPROLOL TARTRATE 5 MG/5 ML VIAL IVP PRN (13:45)
[2017-01-28] MEDS ORDERED: LOPERAMIDE HCL 2 MG/10 ML UDC GT ONE ×2 (13:45→14:00)
[2017-01-28] MEDS: MEROPENEM 500 MG in NS 50 ML IV SCH (21:49)
[2017-01-28] MEDS: NS IV SCH (21:49)
[2017-01-28] MEDS: VORICONAZOLE IV SCH (21:49)
[2017-01-28] MEDS: FUROSEMIDE 20 MG/2 ML VIAL IVP SCH (21:50)
[2017-01-29] VITALS (37 sets, daily range): BP systolic 74–136
[2017-01-29] MEDS: LEVALBUTEROL HCL 0.63 MG/3 ML VIAL.NEB INH SCH ×4 (00:06→19:45)
[2017-01-29] MEDS: IPRATROPIUM BROM 0.5 MG/2.5 ML VIAL.NEB (ATROVENT) INH SCH ×4 (00:06→19:45)
[2017-01-29] MEDS: HYDROCORTISONE SOD SUCC 100 MG/2 ML VIAL IVP SCH ×5 (00:37→23:33)
[2017-01-29] MEDS: INSULIN ASPART 100 UNITS/ML, 10 ML VIAL (NovoLOG) SUBCUT PRN ×4 (00:47→23:53)
[2017-01-29] MEDS: METOPROLOL TARTRATE 5 MG/5 ML VIAL IVP PRN ×2 (04:43→08:25)
[2017-01-29] MEDS: ACETAMINOPHEN 650 MG/20.3 ML UDC NG PRN ×2 (04:44→20:56)
[2017-01-29] MEDS: D5W 1,000 ML IV SCH (04:53)
[2017-01-29] MEDS: PROPRANOLOL HCL 10 MG TABLET (INDERAL) PO SCH ×3 (06:00→22:00)
[2017-01-29] MEDS: METHIMAZOLE 5 MG TABLET NG SCH ×3 (06:53→23:33)
[2017-01-29 07:10] LABS: BASOPHILS # (AUTO) 0.1 K/uL (0.0-0.2); BASOPHILS % (AUTO) 0.4 % (0.0-2.0); HEMATOCRIT 37.9 % (36-48); HEMOGLOBIN 12.6 g/dL (12.0-16.0); LYMPHOCYTES % (AUTO) 4.7 % (20.5-51.5); MEAN CORPUSCULAR HEMOGLOBIN 31 pg (27-31); MEAN CORPUSCULAR HGB CONC 33 % (32-36); MEAN CORPUSCULAR VOLUME 94 fL (79.0-98.0); MONOCYTES % (AUTO) 4.7 % (1.7-9.3); NEUTROPHILS # (AUTO) 19.3 K/uL (1.8-7.7); PLATELET COUNT (AUTO) 53 K/uL (130-430); RED BLOOD CELL COUNT(AUTO) 4.03 MIL/uL (4.2-6.2); RED CELL DISTRIBUTION WIDTH 15.1 % (9.0-15.0); WHITE BLOOD COUNT (AUTO) 21.4 K/uL (4.8-10.8)
[2017-01-29 07:11] LABS: ALANINE AMINOTRANSFERASE 219 U/L (12-78); ALBUMIN 1.7 g/dL (3.4-4.8); ANION GAP 10 (5-15); ASPARTATE AMINOTRANSFERASE 57 U/L (10-37); CALCIUM 7.1 mg/dL (8.4-11.0); CHLORIDE 113 mmol/L (98-107); CREATININE 1.72 mg/dL (0.55-1.30); GLUCOSE 234 mg/dL (70-99); PHOSPHORUS 4.8 mg/dL (2.7-4.5); SODIUM SERUM 146 mmol/L (136-145); TOTAL BILIRUBIN 2.8 mg/dL (0.0-1.0); TOTAL PROTEIN, SERUM 3.8 g/dL (6.4-8.3); UREA NITROGEN, BLOOD 108 mg/dL (8-21)
[2017-01-29 07:14] LABS: POTASSIUM 2.8 mmol/L (3.5-5.1)
[2017-01-29 08:09] LABS: ABG TOTAL HEMOGLOBIN 13.2 G/dL (12.0-18.0); BLOOD GAS BASE EXCESS 1.3 mmol/L (-3.0-3.0); BLOOD GAS PH 7.541 (7.350-7.450); BLOOD O2Hb% 96.8 % (94.0-97.0)
[2017-01-29 08:10] LABS: BLOOD GAS COHb% 0.3 % (0.5-1.5); BLOOD GAS HHB 2.3 % (0.0-6.0)
[2017-01-29] MEDS: PANTOPRAZOLE SODIUM 40 MG/VIAL (PROTONIX) IVP SCH (08:23)
[2017-01-29] MEDS: FUROSEMIDE 20 MG/2 ML VIAL IVP SCH ×2 (08:26→20:17)
[2017-01-29] MEDS: MEROPENEM 500 MG in NS 50 ML IV SCH ×2 (08:28→21:57)
[2017-01-29] MEDS: ANTIFUNGAL CLEAR OINTMENT TP SCH ×2 (08:29→20:21)
[2017-01-29] MEDS ORDERED: POTASSIUM CHLORIDE 40 MEQ in NS 250 ML IV ONE (08:30)
[2017-01-29] MEDS: VORICONAZOLE IV SCH ×2 (09:20→20:16)
[2017-01-29] MEDS: NS IV SCH ×2 (09:20→20:16)
[2017-01-29 10:15] LABS: NEUTROPHILS % (AUTO) 90.2 % (40.0-70.0)
[2017-01-29] MEDS ORDERED: ISOSORBIDE DINITRATE 10 MG TABLET (ISORDIL) ONE (11:32)
[2017-01-29] MEDS ORDERED: PROPRANOLOL HCL 10 MG TABLET (INDERAL) ONE ×2 (11:38→21:21)
[2017-01-29] MEDS ORDERED: MAGNESIUM SULFATE 4 GM in D5W 250 ML IV ONE (12:15)
[2017-01-29] MEDS ORDERED: POTASSIUM CHLORIDE 20 MEQ/PKT PACKET GT ONE (13:45)
[2017-01-29 18:47] LABS: POTASSIUM 4.4 mmol/L (3.5-5.1)
[2017-01-29] MEDS ORDERED: METHIMAZOLE 5 MG TABLET ONE ×2 (23:22→23:27)
[2017-01-30] VITALS (33 sets, daily range): BP systolic 69–121
[2017-01-30] MEDS: IPRATROPIUM BROM 0.5 MG/2.5 ML VIAL.NEB (ATROVENT) INH SCH ×4 (01:11→19:43)
[2017-01-30] MEDS: LEVALBUTEROL HCL 0.63 MG/3 ML VIAL.NEB INH SCH ×4 (01:11→19:44)
[2017-01-30] MEDS: D5W 1,000 ML IV SCH ×2 (03:22→17:42)
[2017-01-30] MEDS: HYDROCORTISONE SOD SUCC 100 MG/2 ML VIAL IVP SCH ×3 (05:49→17:40)
[2017-01-30] MEDS: PROPRANOLOL HCL 10 MG TABLET (INDERAL) PO SCH ×3 (05:50→21:36)
[2017-01-30] MEDS: METHIMAZOLE 5 MG TABLET NG SCH ×3 (05:50→21:35)
[2017-01-30] MEDS: INSULIN ASPART 100 UNITS/ML, 10 ML VIAL (NovoLOG) SUBCUT PRN ×3 (06:35→17:44)
[2017-01-30 07:26] LABS: ANION GAP 12 (5-15); CALCIUM 7.6 mg/dL (8.4-11.0); CHLORIDE 111 mmol/L (98-107); GLUCOSE 228 mg/dL (70-99); SODIUM SERUM 144 mmol/L (136-145)
[2017-01-30 07:30] LABS: ALANINE AMINOTRANSFERASE 159 U/L (12-78); ALBUMIN 1.6 g/dL (3.4-4.8); ASPARTATE AMINOTRANSFERASE 57 U/L (10-37); CREATININE 1.67 mg/dL (0.55-1.30); PHOSPHORUS 5.1 mg/dL (2.7-4.5); TOTAL BILIRUBIN 2.6 mg/dL (0.0-1.0); TOTAL PROTEIN, SERUM 3.6 g/dL (6.4-8.3); UREA NITROGEN, BLOOD 122 mg/dL (8-21)
[2017-01-30] MEDS: PANTOPRAZOLE SODIUM 40 MG/VIAL (PROTONIX) IVP SCH (08:34)
[2017-01-30] MEDS: FUROSEMIDE 20 MG/2 ML VIAL IVP SCH ×2 (08:35→21:32)
[2017-01-30] MEDS: LOPERAMIDE HCL 2 MG/10 ML UDC GT PRN ×2 (08:36→13:44)
[2017-01-30] MEDS: MEROPENEM 500 MG in NS 50 ML IV SCH ×2 (08:36→21:31)
[2017-01-30] MEDS: ANTIFUNGAL CLEAR OINTMENT TP SCH ×2 (08:37→21:34)
[2017-01-30 09:09] LABS: HEMATOCRIT 36.6 % (36-48); PLATELET COUNT (AUTO) 63 K/uL (130-430); RED CELL DISTRIBUTION WIDTH 15.1 % (9.0-15.0)
[2017-01-30 09:15] LABS: INR 1.6 (0.8-1.2); PROTHROMBIN TIME 17.1 SECS (9.5-12.5)
[2017-01-30 09:19] LABS: HEMOGLOBIN 12.3 g/dL (12.0-16.0); MEAN CORPUSCULAR HEMOGLOBIN 32 pg (27-31); MEAN CORPUSCULAR VOLUME 95 fL (79.0-98.0); RED BLOOD CELL COUNT(AUTO) 3.87 MIL/uL (4.2-6.2); WHITE BLOOD COUNT (AUTO) 29.8 K/uL (4.8-10.8)
[2017-01-30 09:20] LABS: MEAN CORPUSCULAR HGB CONC 34 % (32-36)
[2017-01-30] MEDS: ALBUMIN HUMAN 25% 50 ML IV SCH ×3 (10:45→21:37)
[2017-01-30] MEDS: NS IV SCH (10:45)
[2017-01-30] MEDS: VORICONAZOLE IV SCH (10:45)
[2017-01-30 12:12] LABS: BAND % (MANUAL) 1 % (0-6); BASOPHILS % (MANUAL) 0 % (0-2); EOSINOPHILS % (MANUAL) 0 % (0-7); LYMPHOCYTES % (MANUAL) 2 % (20-46); MONOCYTES % (MANUAL) 2 % (0-11)
[2017-01-31] VITALS (30 sets, daily range): BP systolic 97–152
[2017-01-31] MEDS: LEVALBUTEROL HCL 0.63 MG/3 ML VIAL.NEB INH SCH ×4 (01:01→19:46)
[2017-01-31] MEDS: IPRATROPIUM BROM 0.5 MG/2.5 ML VIAL.NEB (ATROVENT) INH SCH ×4 (01:01→19:46)
[2017-01-31] MEDS: HYDROCORTISONE SOD SUCC 100 MG/2 ML VIAL IVP SCH ×4 (05:36→18:16)
[2017-01-31] MEDS: METHIMAZOLE 5 MG TABLET NG SCH ×3 (05:36→21:27)
[2017-01-31] MEDS: PROPRANOLOL HCL 10 MG TABLET (INDERAL) PO SCH ×2 (05:37→13:42)
[2017-01-31] MEDS: INSULIN ASPART 100 UNITS/ML, 10 ML VIAL (NovoLOG) SUBCUT PRN ×4 (06:10→18:20)
[2017-01-31 07:09] LABS: HEMATOCRIT 29.1 % (36-48); HEMOGLOBIN 9.8 g/dL (12.0-16.0); MEAN CORPUSCULAR HEMOGLOBIN 32 pg (27-31); MEAN CORPUSCULAR HGB CONC 34 % (32-36); MEAN CORPUSCULAR VOLUME 94 fL (79.0-98.0); RED BLOOD CELL COUNT(AUTO) 3.09 MIL/uL (4.2-6.2); RED CELL DISTRIBUTION WIDTH 15.2 % (9.0-15.0); WHITE BLOOD COUNT (AUTO) 20.8 K/uL (4.8-10.8)
[2017-01-31 07:40] LABS: ALANINE AMINOTRANSFERASE 99 U/L (12-78); ALBUMIN 2.5 g/dL (3.4-4.8); ANION GAP 9 (5-15); ASPARTATE AMINOTRANSFERASE 52 U/L (10-37); CALCIUM 7.8 mg/dL (8.4-11.0); CHLORIDE 108 mmol/L (98-107); CREATININE 1.22 mg/dL (0.55-1.30); FREE T4 (FREE THYROXINE) 1.8 ng/dL (0.6-1.6); GLUCOSE 309 mg/dL (70-99); SODIUM SERUM 143 mmol/L (136-145); TOTAL BILIRUBIN 4.4 mg/dL (0.0-1.0)
[2017-01-31 07:46] LABS: PLATELET COUNT (AUTO) 35 K/uL (130-430); POTASSIUM 2.7 mmol/L (3.5-5.1); UREA NITROGEN, BLOOD 107 mg/dL (8-21)
[2017-01-31 07:59] LABS: ABG TOTAL HEMOGLOBIN 10.5 G/dL (12.0-18.0); BLOOD GAS BASE EXCESS 4.1 mmol/L (-3.0-3.0); BLOOD GAS COHb% 0.4 % (0.5-1.5); BLOOD GAS HHB 3.5 % (0.0-6.0); BLOOD GAS PH 7.539 (7.350-7.450); BLOOD O2Hb% 95.3 % (94.0-97.0)
[2017-01-31] MEDS ORDERED: POTASSIUM CHLORIDE 20 MEQ TAB.PRT.SR PO SCH ×2 (09:00→13:30)
[2017-01-31] MEDS: MEROPENEM 500 MG in NS 50 ML IV SCH ×2 (09:09→21:24)
[2017-01-31] MEDS: PANTOPRAZOLE SODIUM 40 MG/VIAL (PROTONIX) IVP SCH (09:10)
[2017-01-31] MEDS: FUROSEMIDE 20 MG/2 ML VIAL IVP SCH ×2 (09:10→21:25)
[2017-01-31] MEDS: ANTIFUNGAL CLEAR OINTMENT TP SCH ×2 (09:27→21:00)
[2017-01-31 09:44] LABS: ATYPICAL LYMPHOCYTES % 0 % (0-0); BAND % (MANUAL) 3 % (0-6); BASOPHILS % (MANUAL) 0 % (0-2); EOSINOPHILS % (MANUAL) 0 % (0-7); LYMPHOCYTES % (MANUAL) 6 % (20-46); MONOCYTES % (MANUAL) 3 % (0-11)
[2017-01-31] MEDS: D5W 1,000 ML IV SCH (12:01)
[2017-01-31] MEDS ORDERED: POTASSIUM CHLORIDE 20 MEQ TAB.PRT.SR ONE (13:41)
[2017-01-31] MEDS: POTASSIUM CHLORIDE 20 MEQ/PKT PACKET NG SCH ×2 (14:37→19:29)
[2017-01-31 20:55] LABS: BLOOD GAS PH 7.348 (7.350-7.450)
[2017-01-31 20:56] LABS: ABG TOTAL HEMOGLOBIN 11.1 G/dL (12.0-18.0); BLOOD GAS BASE EXCESS -4.1 mmol/L (-3.0-3.0); BLOOD GAS COHb% 0.3 % (0.5-1.5); BLOOD GAS HHB 1.2 % (0.0-6.0)
[2017-01-31] MEDS ORDERED: NS 500 ML IV ONE (21:05)
[2017-01-31] MEDS ORDERED: COMMUNICATION ORDER XX ONE (21:15)
[2017-01-31 22:17] LABS: ABG TOTAL HEMOGLOBIN 9.9 G/dL (12.0-18.0); BLOOD GAS BASE EXCESS -12.5 mmol/L (-3.0-3.0); BLOOD GAS PH 7.293 (7.350-7.450)
[2017-01-31 22:18] LABS: BLOOD GAS COHb% 0.2 % (0.5-1.5); BLOOD GAS HHB 1.3 % (0.0-6.0); BLOOD O2Hb% 97.5 % (94.0-97.0)
[2017-01-31] MEDS ORDERED: JECT IV SCH (22:38)
[2017-01-31] MEDS ORDERED: D5W IV SCH (22:38)
[2017-01-31] MEDS ORDERED: SODIUM BICARBONATE 8.4% IV SCH (22:38)
[2017-01-31 23:10] LABS: BASOPHILS # (AUTO) 0.3 K/uL (0.0-0.2); BASOPHILS % (AUTO) 1.1 % (0.0-2.0); HEMOGLOBIN 11.2 g/dL (12.0-16.0); LYMPHOCYTES # (AUTO) 0.2 K/uL (1.0-5.5); MEAN CORPUSCULAR HEMOGLOBIN 32 pg (27-31); MEAN CORPUSCULAR HGB CONC 32 % (32-36); MEAN CORPUSCULAR VOLUME 100 fL (79.0-98.0); MONOCYTES # (AUTO) 0.1 K/uL (0.0-1.0); MONOCYTES % (AUTO) 0.6 % (1.7-9.3); NEUTROPHILS # (AUTO) 23.5 K/uL (1.8-7.7); NEUTROPHILS % (AUTO) 97.3 % (40.0-70.0); RED BLOOD CELL COUNT(AUTO) 3.49 MIL/uL (4.2-6.2); RED CELL DISTRIBUTION WIDTH 17.4 % (9.0-15.0); WHITE BLOOD COUNT (AUTO) 24.1 K/uL (4.8-10.8)
[2017-01-31 23:21] LABS: ANION GAP 15 (5-15); CALCIUM 7.4 mg/dL (8.4-11.0); CHLORIDE 115 mmol/L (98-107); CREATININE 1.32 mg/dL (0.55-1.30); GLUCOSE 236 mg/dL (70-99); POTASSIUM 4.3 mmol/L (3.5-5.1); SODIUM SERUM 149 mmol/L (136-145)
[2017-01-31 23:25] LABS: UREA NITROGEN, BLOOD 101 mg/dL (8-21)
[2017-01-31 23:34] LABS: PLATELET COUNT (AUTO) 13 K/uL (130-430)
[2017-02-01] VITALS (30 sets, daily range): BP systolic 88–129
[2017-02-01] MEDS: HYDROCORTISONE SOD SUCC 100 MG/2 ML VIAL IVP SCH ×5 (00:04→23:55)
[2017-02-01 00:33] LABS: ABG TOTAL HEMOGLOBIN 12.1 G/dL (12.0-18.0); BLOOD GAS BASE EXCESS -1.9 mmol/L (-3.0-3.0); BLOOD GAS COHb% 0.3 % (0.5-1.5); BLOOD GAS HHB 1.9 % (0.0-6.0); BLOOD O2Hb% 97.3 % (94.0-97.0)
[2017-02-01] MEDS ORDERED: SODIUM BICARBONATE 8.4% JECT 100 MEQ in D5W 1,000 ML IV SCH (01:00)
[2017-02-01] MEDS: LEVALBUTEROL HCL 0.63 MG/3 ML VIAL.NEB INH SCH ×4 (01:33→19:43)
[2017-02-01] MEDS: IPRATROPIUM BROM 0.5 MG/2.5 ML VIAL.NEB (ATROVENT) INH SCH ×4 (01:33→19:43)
[2017-02-01] MEDS: POTASSIUM CHLORIDE 20 MEQ/PKT PACKET NG SCH ×4 (01:57→20:28)
[2017-02-01 03:10] LABS: BASOPHILS # (AUTO) 0.3 K/uL (0.0-0.2); BASOPHILS % (AUTO) 0.9 % (0.0-2.0); HEMATOCRIT 36.4 % (36-48); HEMOGLOBIN 12.2 g/dL (12.0-16.0); LYMPHOCYTES # (AUTO) 0.6 K/uL (1.0-5.5); LYMPHOCYTES % (AUTO) 1.7 % (20.5-51.5); MEAN CORPUSCULAR HEMOGLOBIN 32 pg (27-31); MEAN CORPUSCULAR HGB CONC 34 % (32-36); MEAN CORPUSCULAR VOLUME 96 fL (79.0-98.0); MONOCYTES # (AUTO) 0.5 K/uL (0.0-1.0); MONOCYTES % (AUTO) 1.3 % (1.7-9.3); NEUTROPHILS # (AUTO) 36.8 K/uL (1.8-7.7); NEUTROPHILS % (AUTO) 96.1 % (40.0-70.0); RED CELL DISTRIBUTION WIDTH 15.4 % (9.0-15.0)
[2017-02-01 03:19] LABS: ALANINE AMINOTRANSFERASE 417 U/L (12-78); ALBUMIN 2.2 g/dL (3.4-4.8); ANION GAP 3 (5-15); ASPARTATE AMINOTRANSFERASE 532 U/L (10-37); CALCIUM 7.3 mg/dL (8.4-11.0); CHLORIDE 117 mmol/L (98-107); CREATININE 1.41 mg/dL (0.55-1.30); GLUCOSE 265 mg/dL (70-99); PLATELET COUNT (AUTO) 47 K/uL (130-430); POTASSIUM 3.6 mmol/L (3.5-5.1); SODIUM SERUM 148 mmol/L (136-145); TOTAL BILIRUBIN 5.1 mg/dL (0.0-1.0); TOTAL PROTEIN, SERUM 3.6 g/dL (6.4-8.3); WHITE BLOOD COUNT (AUTO) 38.2 K/uL (4.8-10.8)
[2017-02-01 03:29] LABS: UREA NITROGEN, BLOOD 105 mg/dL (8-21)
[2017-02-01 08:11] LABS: BLOOD GAS BASE EXCESS 1.6 mmol/L (-3.0-3.0); BLOOD GAS PH 7.516 (7.350-7.450)
[2017-02-01 08:12] LABS: ABG TOTAL HEMOGLOBIN 11.6 G/dL (12.0-18.0); BLOOD GAS COHb% 0.3 % (0.5-1.5); BLOOD O2Hb% 97.5 % (94.0-97.0)
[2017-02-01 08:18] LABS: HEMATOCRIT 33.5 % (36-48); HEMOGLOBIN 11.1 g/dL (12.0-16.0); MEAN CORPUSCULAR HEMOGLOBIN 32 pg (27-31); MEAN CORPUSCULAR HGB CONC 33 % (32-36); MEAN CORPUSCULAR VOLUME 96 fL (79.0-98.0); PLATELET COUNT (AUTO) 126 K/uL (130-430); RED BLOOD CELL COUNT(AUTO) 3.49 MIL/uL (4.2-6.2); RED CELL DISTRIBUTION WIDTH 17.6 % (9.0-15.0)
[2017-02-01 08:28] LABS: WHITE BLOOD COUNT (AUTO) 32.8 K/uL (4.8-10.8)
[2017-02-01 08:43] LABS: ANION GAP 13 (5-15); CALCIUM 7.4 mg/dL (8.4-11.0); CHLORIDE 115 mmol/L (98-107); CREATININE 1.84 mg/dL (0.55-1.30); GLUCOSE 308 mg/dL (70-99); POTASSIUM 3.6 mmol/L (3.5-5.1); SODIUM SERUM 151 mmol/L (136-145)
[2017-02-01 08:49] LABS: ALANINE AMINOTRANSFERASE 346 U/L (12-78); ALBUMIN 2.1 g/dL (3.4-4.8); ASPARTATE AMINOTRANSFERASE 479 U/L (10-37); TOTAL BILIRUBIN 4.8 mg/dL (0.0-1.0); TOTAL PROTEIN, SERUM 3.8 g/dL (6.4-8.3)
[2017-02-01] MEDS: MEROPENEM 500 MG in NS 50 ML IV SCH ×2 (08:54→22:37)
[2017-02-01] MEDS: FUROSEMIDE 20 MG/2 ML VIAL IVP SCH ×2 (08:55→22:44)
[2017-02-01 08:56] LABS: UREA NITROGEN, BLOOD 119 mg/dL (8-21)
[2017-02-01 08:59] LABS: ATYPICAL LYMPHOCYTES % 0 % (0-0); BAND % (MANUAL) 0 % (0-6); BASOPHILS % (MANUAL) 0 % (0-2); EOSINOPHILS % (MANUAL) 0 % (0-7); LYMPHOCYTES % (MANUAL) 1 % (20-46); MONOCYTES % (MANUAL) 0 % (0-11); MYELOCYTES % 1 % (0-0)
[2017-02-01] MEDS: DOPamine PREMIX 250 ML IV PRN ×2 (10:11→22:22)
[2017-02-01] MEDS: 0.45% NACL 1,000 ML IV SCH ×2 (10:45→20:28)
[2017-02-01] MEDS: PANTOPRAZOLE SODIUM 40 MG in NS 50 ML IV SCH ×4 (10:45→23:54)
[2017-02-01] MEDS ORDERED: VORICONAZOLE 200 MG TABLET NG ONE (10:45)
[2017-02-01] MEDS: ANTIFUNGAL CLEAR OINTMENT TP SCH ×2 (11:44→22:45)
[2017-02-01] MEDS: METHIMAZOLE 5 MG TABLET NG SCH ×2 (12:28→22:37)
[2017-02-01] MEDS: VORICONAZOLE 200 MG TABLET NG SCH ×2 (12:29→22:38)
[2017-02-01] MEDS: INSULIN ASPART 100 UNITS/ML, 10 ML VIAL (NovoLOG) SUBCUT PRN (13:29)
[2017-02-01] MEDS: SUCRALFATE 1 GM/10 ML UDC GT SCH ×2 (15:30→20:28)
[2017-02-01 19:39] LABS: MEAN CORPUSCULAR HEMOGLOBIN 32 pg (27-31); MEAN CORPUSCULAR HGB CONC 33 % (32-36); MEAN CORPUSCULAR VOLUME 95 fL (79.0-98.0)
[2017-02-01 19:43] LABS: BASOPHILS # (AUTO) 0.5 K/uL (0.0-0.2); BASOPHILS % (AUTO) 1.7 % (0.0-2.0); HEMATOCRIT 32.7 % (36-48); HEMOGLOBIN 10.9 g/dL (12.0-16.0); LYMPHOCYTES # (AUTO) 0.7 K/uL (1.0-5.5); LYMPHOCYTES % (AUTO) 2.3 % (20.5-51.5); MONOCYTES # (AUTO) 0.3 K/uL (0.0-1.0); MONOCYTES % (AUTO) 0.9 % (1.7-9.3); NEUTROPHILS # (AUTO) 28.2 K/uL (1.8-7.7); NEUTROPHILS % (AUTO) 95.1 % (40.0-70.0); RED BLOOD CELL COUNT(AUTO) 3.45 MIL/uL (4.2-6.2); RED CELL DISTRIBUTION WIDTH 15.4 % (9.0-15.0); WHITE BLOOD COUNT (AUTO) 29.7 K/uL (4.8-10.8)
[2017-02-01 19:47] LABS: PLATELET COUNT (AUTO) 105 K/uL (130-430)
[2017-02-01 19:48] LABS: ANION GAP 10 (5-15); CALCIUM 7.2 mg/dL (8.4-11.0); CHLORIDE 116 mmol/L (98-107); GLUCOSE 216 mg/dL (70-99); POTASSIUM 4.4 mmol/L (3.5-5.1); SODIUM SERUM 148 mmol/L (136-145)
[2017-02-01 20:00] LABS: UREA NITROGEN, BLOOD 130 mg/dL (8-21)
[2017-02-01] MEDS: LOPERAMIDE HCL 2 MG/10 ML UDC GT PRN (22:43)
[2017-02-01] MEDS: ACETAMINOPHEN 650 MG/20.3 ML UDC NG PRN (23:56)
[2017-02-02] VITALS (29 sets, daily range): BP systolic 81–143
[2017-02-02] MEDS: INSULIN ASPART 100 UNITS/ML, 10 ML VIAL (NovoLOG) SUBCUT PRN ×3 (00:04→12:51)
[2017-02-02] MEDS: LEVALBUTEROL HCL 0.63 MG/3 ML VIAL.NEB INH SCH ×4 (00:56→19:43)
[2017-02-02] MEDS: IPRATROPIUM BROM 0.5 MG/2.5 ML VIAL.NEB (ATROVENT) INH SCH ×4 (00:56→19:43)
[2017-02-02] MEDS: POTASSIUM CHLORIDE 20 MEQ/PKT PACKET NG SCH ×4 (02:24→20:37)
[2017-02-02] MEDS: SUCRALFATE 1 GM/10 ML UDC GT SCH ×4 (02:24→20:38)
[2017-02-02] MEDS: PANTOPRAZOLE SODIUM 40 MG in NS 50 ML IV SCH ×4 (03:44→19:28)
[2017-02-02] MEDS: HYDROCORTISONE SOD SUCC 100 MG/2 ML VIAL IVP SCH ×3 (05:28→17:52)
[2017-02-02] MEDS: 0.45% NACL 1,000 ML IV SCH ×3 (07:48→22:01)
[2017-02-02 07:56] LABS: BLOOD GAS PH 7.458 (7.350-7.450)
[2017-02-02 07:57] LABS: ABG TOTAL HEMOGLOBIN 9.9 G/dL (12.0-18.0); BLOOD GAS BASE EXCESS -2.3 mmol/L (-3.0-3.0); BLOOD GAS COHb% 0.3 % (0.5-1.5); BLOOD GAS HHB 2.9 % (0.0-6.0); BLOOD O2Hb% 96.5 % (94.0-97.0)
[2017-02-02 08:53] LABS: INR 1.4 (0.8-1.2)
[2017-02-02] MEDS: MEROPENEM 500 MG in NS 50 ML IV SCH ×2 (09:00→20:38)
[2017-02-02] MEDS: FUROSEMIDE 20 MG/2 ML VIAL IVP SCH ×2 (09:03→20:38)
[2017-02-02] MEDS: METHIMAZOLE 5 MG TABLET NG SCH ×2 (09:03→20:39)
[2017-02-02 09:05] LABS: ALANINE AMINOTRANSFERASE 245 U/L (12-78); ALBUMIN 2.3 g/dL (3.4-4.8); ANION GAP 14 (5-15); ASPARTATE AMINOTRANSFERASE 230 U/L (10-37); CALCIUM 7.6 mg/dL (8.4-11.0); CHLORIDE 114 mmol/L (98-107); CREATININE 2.74 mg/dL (0.55-1.30); FREE T4 (FREE THYROXINE) 1.3 ng/dL (0.6-1.6); GLUCOSE 193 mg/dL (70-99); PHOSPHORUS 6.3 mg/dL (2.7-4.5); POTASSIUM 4.1 mmol/L (3.5-5.1); SODIUM SERUM 148 mmol/L (136-145); TOTAL PROTEIN, SERUM 4.3 g/dL (6.4-8.3); UREA NITROGEN, BLOOD 136 mg/dL (8-21)
[2017-02-02] MEDS: VORICONAZOLE 200 MG TABLET NG SCH ×2 (09:07→20:41)
[2017-02-02 09:14] LABS: MEAN CORPUSCULAR HGB CONC 33 % (32-36); MEAN CORPUSCULAR VOLUME 96 fL (79.0-98.0)
[2017-02-02] MEDS ORDERED: PHENYLEPHRINE HCL 30 MG in NS 247 ML IV PRN (09:15)
[2017-02-02 09:27] LABS: HEMATOCRIT 28.7 % (36-48); HEMOGLOBIN 9.3 g/dL (12.0-16.0); MEAN CORPUSCULAR HEMOGLOBIN 31 pg (27-31); PLATELET COUNT (AUTO) 76 K/uL (130-430); RED CELL DISTRIBUTION WIDTH 16.6 % (9.0-15.0); WHITE BLOOD COUNT (AUTO) 26.4 K/uL (4.8-10.8)
[2017-02-02] MEDS: ANTIFUNGAL CLEAR OINTMENT TP SCH ×2 (09:37→20:42)
[2017-02-02 09:44] LABS: BAND % (MANUAL) 2 % (0-6); BASOPHILS % (MANUAL) 0 % (0-2); EOSINOPHILS % (MANUAL) 0 % (0-7); LYMPHOCYTES % (MANUAL) 6 % (20-46); METAMYELOCYTES % 2 % (0-0); MONOCYTES % (MANUAL) 5 % (0-11)
[2017-02-02] MEDS: ACETAMINOPHEN 650 MG/20.3 ML UDC NG PRN (09:45)
[2017-02-02] MEDS ORDERED: NOREPINEPHRINE BITARTRATE 16 MG in NS 234 ML IV PRN (10:00)
[2017-02-02] MEDS ORDERED: NOREPINEPHRINE 4 MG/4 ML VIAL IV ONE ×2 (10:09→10:28)
[2017-02-02] MEDS ORDERED: PANTOPRAZOLE SODIUM 40 MG/VIAL (PROTONIX) ONE (14:12)
[2017-02-02] MEDS ORDERED: LOPERAMIDE HCL 2 MG CAPSULE PO PRN (14:15)
[2017-02-02] MEDS: PROPRANOLOL HCL 10 MG TABLET (INDERAL) PO SCH (15:19)
[2017-02-02] MEDS ORDERED: HEPARIN SODIUM,PORCINE 5000 UNITS/ML VIAL ONE ×2 (15:34→15:54)
[2017-02-02] MEDS ORDERED: LOPERAMIDE HCL 2 MG CAPSULE PO ONE (16:00)
[2017-02-02] MEDS ORDERED: LOPERAMIDE HCL 2 MG/10 ML UDC GT ONE (16:15)
[2017-02-03] VITALS (35 sets, daily range): BP systolic 90–133
[2017-02-03] MEDS: PANTOPRAZOLE SODIUM 40 MG in NS 50 ML IV SCH ×5 (00:16→21:13)
[2017-02-03] MEDS: HYDROCORTISONE SOD SUCC 100 MG/2 ML VIAL IVP SCH ×5 (00:16→23:56)
[2017-02-03] MEDS: PROPRANOLOL HCL 10 MG TABLET (INDERAL) PO SCH ×4 (00:16→21:29)
[2017-02-03] MEDS: INSULIN ASPART 100 UNITS/ML, 10 ML VIAL (NovoLOG) SUBCUT PRN ×4 (00:22→23:48)
[2017-02-03] MEDS: POTASSIUM CHLORIDE 20 MEQ/PKT PACKET NG SCH ×3 (01:14→13:15)
[2017-02-03] MEDS: SUCRALFATE 1 GM/10 ML UDC GT SCH ×4 (01:14→20:22)
[2017-02-03] MEDS: IPRATROPIUM BROM 0.5 MG/2.5 ML VIAL.NEB (ATROVENT) INH SCH ×4 (01:42→20:03)
[2017-02-03] MEDS: LEVALBUTEROL HCL 0.63 MG/3 ML VIAL.NEB INH SCH ×4 (01:43→20:04)
[2017-02-03 06:49] LABS: BASOPHILS % (AUTO) 0.1 % (0.0-2.0); HEMATOCRIT 25.5 % (36-48); HEMOGLOBIN 8.7 g/dL (12.0-16.0); LYMPHOCYTES # (AUTO) 0.4 K/uL (1.0-5.5); LYMPHOCYTES % (AUTO) 1.6 % (20.5-51.5); MEAN CORPUSCULAR HEMOGLOBIN 33 pg (27-31); MEAN CORPUSCULAR HGB CONC 34 % (32-36); MEAN CORPUSCULAR VOLUME 95 fL (79.0-98.0); MONOCYTES % (AUTO) 3.7 % (1.7-9.3); NEUTROPHILS # (AUTO) 26.6 K/uL (1.8-7.7); NEUTROPHILS % (AUTO) 94.6 % (40.0-70.0); RED BLOOD CELL COUNT(AUTO) 2.68 MIL/uL (4.2-6.2); RED CELL DISTRIBUTION WIDTH 19.4 % (9.0-15.0)
[2017-02-03 07:12] LABS: ALANINE AMINOTRANSFERASE 179 U/L (12-78); ANION GAP 12 (5-15); ASPARTATE AMINOTRANSFERASE 89 U/L (10-37); CALCIUM 7.4 mg/dL (8.4-11.0); CHLORIDE 115 mmol/L (98-107); FREE T4 (FREE THYROXINE) 1.4 ng/dL (0.6-1.6); GLUCOSE 212 mg/dL (70-99); PHOSPHORUS 6.4 mg/dL (2.7-4.5); POTASSIUM 5.5 mmol/L (3.5-5.1); SODIUM SERUM 146 mmol/L (136-145); TOTAL BILIRUBIN 3.2 mg/dL (0.0-1.0); TOTAL PROTEIN, SERUM 3.9 g/dL (6.4-8.3)
[2017-02-03 07:15] LABS: UREA NITROGEN, BLOOD 123 mg/dL (8-21)
[2017-02-03] MEDS: FUROSEMIDE 20 MG/2 ML VIAL IVP SCH ×2 (08:15→20:23)
[2017-02-03] MEDS: METHIMAZOLE 5 MG TABLET NG SCH ×2 (08:15→20:24)
[2017-02-03] MEDS: VORICONAZOLE 200 MG TABLET NG SCH ×2 (08:17→20:25)
[2017-02-03] MEDS: ANTIFUNGAL CLEAR OINTMENT TP SCH ×2 (08:18→21:21)
[2017-02-03] MEDS: ACETAMINOPHEN 650 MG/20.3 ML UDC NG PRN (08:56)
[2017-02-03] MEDS: MEROPENEM 500 MG in NS 50 ML IV SCH ×2 (09:17→20:23)
[2017-02-03] MEDS: NACL 0.9% 1,000 ML IV SCH (10:12)
[2017-02-03] MEDS ORDERED: VANCOMYCIN HCL 750 MG in NS 250 ML IV SCH (11:00)
[2017-02-03 11:53] LABS: PLATELET COUNT (AUTO) 80 K/uL (130-430)
[2017-02-03] MEDS: 0.45% NACL 1,000 ML IV SCH (18:03)
[2017-02-03] MEDS ORDERED: SUCRALFATE 1 GM/10 ML UDC ONE ×2 (20:29→20:30)
[2017-02-04] VITALS (36 sets, daily range): BP systolic 77–142
[2017-02-04] MEDS: IPRATROPIUM BROM 0.5 MG/2.5 ML VIAL.NEB (ATROVENT) INH SCH ×4 (01:01→19:50)
[2017-02-04] MEDS: LEVALBUTEROL HCL 0.63 MG/3 ML VIAL.NEB INH SCH ×4 (01:01→19:51)
[2017-02-04] MEDS: NACL 0.9% 1,000 ML IV SCH ×2 (01:11→12:10)
[2017-02-04] MEDS: SUCRALFATE 1 GM/10 ML UDC GT SCH ×4 (01:25→20:13)
[2017-02-04] MEDS: PANTOPRAZOLE SODIUM 40 MG in NS 50 ML IV SCH ×2 (02:35→08:22)
[2017-02-04] MEDS: PROPRANOLOL HCL 10 MG TABLET (INDERAL) PO SCH ×3 (05:39→21:26)
[2017-02-04] MEDS: HYDROCORTISONE SOD SUCC 100 MG/2 ML VIAL IVP SCH ×3 (05:40→17:45)
[2017-02-04] MEDS ORDERED: PROPRANOLOL HCL 10 MG TABLET (INDERAL) ONE (05:47)
[2017-02-04] MEDS: INSULIN ASPART 100 UNITS/ML, 10 ML VIAL (NovoLOG) SUBCUT PRN ×3 (05:53→17:49)
[2017-02-04 06:49] LABS: HEMOGLOBIN 8.3 g/dL (12.0-16.0); MEAN CORPUSCULAR HEMOGLOBIN 32 pg (27-31); MEAN CORPUSCULAR HGB CONC 33 % (32-36); MEAN CORPUSCULAR VOLUME 96 fL (79.0-98.0); PLATELET COUNT (AUTO) 76 K/uL (130-430); RED BLOOD CELL COUNT(AUTO) 2.59 MIL/uL (4.2-6.2); RED CELL DISTRIBUTION WIDTH 19.6 % (9.0-15.0); WHITE BLOOD COUNT (AUTO) 27.9 K/uL (4.8-10.8)
[2017-02-04 07:01] LABS: ALANINE AMINOTRANSFERASE 124 U/L (12-78); ALBUMIN 1.7 g/dL (3.4-4.8); ANION GAP 11 (5-15); ASPARTATE AMINOTRANSFERASE 56 U/L (10-37); CALCIUM 7.7 mg/dL (8.4-11.0); CHLORIDE 118 mmol/L (98-107); CREATININE 3.26 mg/dL (0.55-1.30); GLUCOSE 195 mg/dL (70-99); SODIUM SERUM 146 mmol/L (136-145); TOTAL BILIRUBIN 2.2 mg/dL (0.0-1.0); TOTAL PROTEIN, SERUM 3.7 g/dL (6.4-8.3)
[2017-02-04 07:07] LABS: POTASSIUM 6.2 mmol/L (3.5-5.1); UREA NITROGEN, BLOOD 141 mg/dL (8-21)
[2017-02-04 08:11] LABS: BLOOD GAS PH 7.384 (7.350-7.450)
[2017-02-04 08:12] LABS: ABG TOTAL HEMOGLOBIN 8.6 G/dL (12.0-18.0); BLOOD GAS BASE EXCESS -7.5 mmol/L (-3.0-3.0); BLOOD GAS COHb% 0.6 % (0.5-1.5); BLOOD GAS HHB 2.3 % (0.0-6.0); BLOOD O2Hb% 95.9 % (94.0-97.0)
[2017-02-04] MEDS: FUROSEMIDE 20 MG/2 ML VIAL IVP SCH ×2 (08:19→21:28)
[2017-02-04] MEDS: VORICONAZOLE 200 MG TABLET NG SCH ×2 (08:20→21:33)
[2017-02-04] MEDS: METHIMAZOLE 5 MG TABLET NG SCH ×2 (08:20→21:27)
[2017-02-04] MEDS: NOREPINEPHRINE BITARTRATE 16 MG in NS 234 ML IV PRN (08:21)
[2017-02-04] MEDS: MEROPENEM 500 MG in NS 50 ML IV SCH ×2 (08:22→21:08)
[2017-02-04] MEDS: ANTIFUNGAL CLEAR OINTMENT TP SCH ×2 (08:25→21:50)
[2017-02-04 09:39] LABS: BAND % (MANUAL) 3 % (0-6); BASOPHILS % (MANUAL) 0 % (0-2); EOSINOPHILS % (MANUAL) 0 % (0-7); LYMPHOCYTES % (MANUAL) 2 % (20-46); MONOCYTES % (MANUAL) 5 % (0-11)
[2017-02-04] MEDS ORDERED: SODIUM POLYSTYRENE SULFONATE 15 GM/60 ML UDBTL NG ONE (10:15)
[2017-02-04 17:04] LABS: HEMATOCRIT 24.6 % (36-48); HEMOGLOBIN 8.2 g/dL (12.0-16.0); MEAN CORPUSCULAR HEMOGLOBIN 32 pg (27-31); MEAN CORPUSCULAR HGB CONC 33 % (32-36); MEAN CORPUSCULAR VOLUME 96 fL (79.0-98.0); PLATELET COUNT (AUTO) 75 K/uL (130-430); RED BLOOD CELL COUNT(AUTO) 2.57 MIL/uL (4.2-6.2); RED CELL DISTRIBUTION WIDTH 19.9 % (9.0-15.0)
[2017-02-04 17:07] LABS: WHITE BLOOD COUNT (AUTO) 28.5 K/uL (4.8-10.8)
[2017-02-04 17:09] LABS: ANION GAP 11 (5-15); CHLORIDE 116 mmol/L (98-107); GLUCOSE 157 mg/dL (70-99); POTASSIUM 5.5 mmol/L (3.5-5.1); SODIUM SERUM 146 mmol/L (136-145)
[2017-02-04 17:12] LABS: UREA NITROGEN, BLOOD 147 mg/dL (8-21)
[2017-02-04 17:18] LABS: BAND % (MANUAL) 4 % (0-6); BASOPHILS % (MANUAL) 0 % (0-2); EOSINOPHILS % (MANUAL) 0 % (0-7); LYMPHOCYTES % (MANUAL) 2 % (20-46); MONOCYTES % (MANUAL) 0 % (0-11)
[2017-02-04] MEDS: PANTOPRAZOLE SODIUM 40 MG/VIAL (PROTONIX) IVP SCH (21:29)
[2017-02-05] VITALS (34 sets, daily range): BP systolic 89–138
[2017-02-05] MEDS: HYDROCORTISONE SOD SUCC 100 MG/2 ML VIAL IVP SCH ×4 (00:14→17:55)
[2017-02-05] MEDS: IPRATROPIUM BROM 0.5 MG/2.5 ML VIAL.NEB (ATROVENT) INH SCH ×4 (00:52→19:28)
[2017-02-05] MEDS: LEVALBUTEROL HCL 0.63 MG/3 ML VIAL.NEB INH SCH ×4 (00:53→19:28)
[2017-02-05] MEDS: SUCRALFATE 1 GM/10 ML UDC GT SCH ×4 (05:14→21:09)
[2017-02-05] MEDS: PROPRANOLOL HCL 10 MG TABLET (INDERAL) PO SCH ×4 (05:19→21:14)
[2017-02-05] MEDS: INSULIN ASPART 100 UNITS/ML, 10 ML VIAL (NovoLOG) SUBCUT PRN ×3 (05:40→17:54)
[2017-02-05 06:41] LABS: HEMATOCRIT 30.3 % (36-48); HEMOGLOBIN 10.1 g/dL (12.0-16.0); MEAN CORPUSCULAR HEMOGLOBIN 32 pg (27-31); MEAN CORPUSCULAR HGB CONC 34 % (32-36); MEAN CORPUSCULAR VOLUME 95 fL (79.0-98.0); PLATELET COUNT (AUTO) 82 K/uL (130-430); RED BLOOD CELL COUNT(AUTO) 3.17 MIL/uL (4.2-6.2); RED CELL DISTRIBUTION WIDTH 16.8 % (9.0-15.0); WHITE BLOOD COUNT (AUTO) 27.2 K/uL (4.8-10.8)
[2017-02-05 06:51] LABS: INR 1.2 (0.8-1.2); PROTHROMBIN TIME 12.9 SECS (9.5-12.5)
[2017-02-05 07:04] LABS: ALANINE AMINOTRANSFERASE 114 U/L (12-78); ALBUMIN 1.6 g/dL (3.4-4.8); ANION GAP 14 (5-15); ASPARTATE AMINOTRANSFERASE 64 U/L (10-37); CALCIUM 7.8 mg/dL (8.4-11.0); CHLORIDE 112 mmol/L (98-107); CREATININE 3.26 mg/dL (0.55-1.30); GLUCOSE 213 mg/dL (70-99); POTASSIUM 4.1 mmol/L (3.5-5.1); SODIUM SERUM 144 mmol/L (136-145); TOTAL BILIRUBIN 2.4 mg/dL (0.0-1.0); TOTAL PROTEIN, SERUM 3.9 g/dL (6.4-8.3)
[2017-02-05 07:21] LABS: UREA NITROGEN, BLOOD 126 mg/dL (8-21)
[2017-02-05] MEDS ORDERED: LEVALBUTEROL HCL 0.63 MG/3 ML VIAL.NEB INH ONE (07:37)
[2017-02-05 07:42] LABS: BLOOD GAS PH 7.357 (7.350-7.450)
[2017-02-05 07:43] LABS: ABG TOTAL HEMOGLOBIN 10.9 G/dL (12.0-18.0); BLOOD GAS BASE EXCESS -7.5 mmol/L (-3.0-3.0); BLOOD GAS COHb% 0.3 % (0.5-1.5); BLOOD GAS HHB 9.3 % (0.0-6.0)
[2017-02-05] MEDS: ACETAMINOPHEN 650 MG/20.3 ML UDC NG PRN (08:18)
[2017-02-05 09:04] LABS: BAND % (MANUAL) 2 % (0-6); BASOPHILS % (MANUAL) 0 % (0-2); EOSINOPHILS % (MANUAL) 0 % (0-7); LYMPHOCYTES % (MANUAL) 1 % (20-46); MONOCYTES % (MANUAL) 4 % (0-11)
[2017-02-05] MEDS: FUROSEMIDE 20 MG/2 ML VIAL IVP SCH ×2 (09:24→22:38)
[2017-02-05] MEDS: METHIMAZOLE 5 MG TABLET NG SCH ×2 (09:24→21:09)
[2017-02-05] MEDS: PANTOPRAZOLE SODIUM 40 MG/VIAL (PROTONIX) IVP SCH ×2 (09:24→21:10)
[2017-02-05] MEDS: ANTIFUNGAL CLEAR OINTMENT TP SCH ×2 (09:25→21:12)
[2017-02-05] MEDS: VORICONAZOLE 200 MG TABLET NG SCH ×2 (09:28→21:09)
[2017-02-05] MEDS: MEROPENEM 500 MG in NS 50 ML IV SCH (10:17)
[2017-02-05] MEDS: LOPERAMIDE HCL 2 MG/10 ML UDC GT PRN (14:16)
[2017-02-05] MEDS: NOREPINEPHRINE BITARTRATE 16 MG in NS 234 ML IV PRN (14:24)
[2017-02-06] VITALS (32 sets, daily range): BP systolic 92–125
[2017-02-06] MEDS: HYDROCORTISONE SOD SUCC 100 MG/2 ML VIAL IVP SCH ×4 (00:22→18:10)
[2017-02-06] MEDS: INSULIN ASPART 100 UNITS/ML, 10 ML VIAL (NovoLOG) SUBCUT PRN ×4 (00:31→18:23)
[2017-02-06] MEDS: LEVALBUTEROL HCL 0.63 MG/3 ML VIAL.NEB INH SCH ×4 (01:52→19:36)
[2017-02-06] MEDS: IPRATROPIUM BROM 0.5 MG/2.5 ML VIAL.NEB (ATROVENT) INH SCH ×4 (01:52→19:36)
[2017-02-06] MEDS: SUCRALFATE 1 GM/10 ML UDC GT SCH ×3 (02:43→13:56)
[2017-02-06 06:29] LABS: BASOPHILS # (AUTO) 0.2 K/uL (0.0-0.2); BASOPHILS % (AUTO) 0.6 % (0.0-2.0); HEMATOCRIT 27.1 % (36-48); LYMPHOCYTES # (AUTO) 0.3 K/uL (1.0-5.5); LYMPHOCYTES % (AUTO) 1.2 % (20.5-51.5); MEAN CORPUSCULAR HEMOGLOBIN 32 pg (27-31); MEAN CORPUSCULAR HGB CONC 33 % (32-36); MEAN CORPUSCULAR VOLUME 95 fL (79.0-98.0); MONOCYTES # (AUTO) 0.6 K/uL (0.0-1.0); MONOCYTES % (AUTO) 2.3 % (1.7-9.3); NEUTROPHILS # (AUTO) 24.9 K/uL (1.8-7.7); NEUTROPHILS % (AUTO) 95.9 % (40.0-70.0); PLATELET COUNT (AUTO) 68 K/uL (130-430); RED BLOOD CELL COUNT(AUTO) 2.86 MIL/uL (4.2-6.2); RED CELL DISTRIBUTION WIDTH 17.2 % (9.0-15.0)
[2017-02-06] MEDS: PROPRANOLOL HCL 10 MG TABLET (INDERAL) PO SCH (06:47)
[2017-02-06 07:53] LABS: ANION GAP 18 (5-15); CALCIUM 7.8 mg/dL (8.4-11.0); CHLORIDE 112 mmol/L (98-107); GLUCOSE 179 mg/dL (70-99); POTASSIUM 3.1 mmol/L (3.5-5.1); SODIUM SERUM 145 mmol/L (136-145)
[2017-02-06 07:54] LABS: CREATININE 3.72 mg/dL (0.55-1.30)
[2017-02-06 07:55] LABS: UREA NITROGEN, BLOOD 144 mg/dL (8-21)
[2017-02-06 07:59] LABS: PHOSPHORUS 8.2 mg/dL (2.7-4.5)
[2017-02-06 08:04] LABS: BLOOD GAS PH 7.347 (7.350-7.450)
[2017-02-06 08:05] LABS: ABG TOTAL HEMOGLOBIN 9.7 G/dL (12.0-18.0); BLOOD GAS BASE EXCESS -8.2 mmol/L (-3.0-3.0); BLOOD GAS COHb% 0.3 % (0.5-1.5); BLOOD GAS HHB 3.2 % (0.0-6.0); BLOOD O2Hb% 96.1 % (94.0-97.0)
[2017-02-06] MEDS ORDERED: POTASSIUM CHLORIDE 20 MEQ/PKT PACKET PO ONE (08:45)
[2017-02-06] MEDS ORDERED: BISMUTH SUBSALICYLATE 240 ML BOTTLE PO PRN (09:00)
[2017-02-06] MEDS: PANTOPRAZOLE SODIUM 40 MG/VIAL (PROTONIX) IVP SCH (09:02)
[2017-02-06] MEDS: FUROSEMIDE 20 MG/2 ML VIAL IVP SCH (09:02)
[2017-02-06] MEDS: VORICONAZOLE 200 MG TABLET NG SCH ×2 (09:03→21:00)
[2017-02-06] MEDS: METHIMAZOLE 5 MG TABLET NG SCH (09:03)
[2017-02-06] MEDS: LOPERAMIDE HCL 2 MG/10 ML UDC GT PRN (09:08)
[2017-02-06] MEDS: ANTIFUNGAL CLEAR OINTMENT TP SCH (09:22)
[2017-02-06] MEDS ORDERED: VANCOMYCIN HCL 1,000 MG in NS 250 ML IV SCH (11:00)
[2017-02-07] VITALS (19 sets, daily range): BP systolic 53–128
[2017-02-07] MEDS: SUCRALFATE 1 GM/10 ML UDC GT SCH ×3 (00:54→09:07)
[2017-02-07] MEDS: LOPERAMIDE HCL 2 MG/10 ML UDC GT PRN ×2 (00:54→09:13)
[2017-02-07] MEDS: PROPRANOLOL HCL 10 MG TABLET (INDERAL) NG SCH ×2 (00:55→08:49)
[2017-02-07] MEDS: IPRATROPIUM BROM 0.5 MG/2.5 ML VIAL.NEB (ATROVENT) INH SCH ×2 (00:56→07:51)
[2017-02-07] MEDS: LEVALBUTEROL HCL 0.63 MG/3 ML VIAL.NEB INH SCH ×2 (00:56→07:51)
[2017-02-07] MEDS: METHIMAZOLE 5 MG TABLET NG SCH ×2 (00:58→09:07)
[2017-02-07] MEDS: FUROSEMIDE 20 MG/2 ML VIAL IVP SCH ×2 (01:05→09:08)
[2017-02-07] MEDS: PANTOPRAZOLE SODIUM 40 MG/VIAL (PROTONIX) IVP SCH ×2 (01:06→09:07)
[2017-02-07] MEDS: INSULIN ASPART 100 UNITS/ML, 10 ML VIAL (NovoLOG) SUBCUT PRN ×2 (01:18→06:30)
[2017-02-07] MEDS: HYDROCORTISONE SOD SUCC 100 MG/2 ML VIAL IVP SCH ×2 (01:24→06:29)
[2017-02-07] MEDS: ANTIFUNGAL CLEAR OINTMENT TP SCH ×2 (01:32→09:37)
[2017-02-07 06:41] LABS: HEMATOCRIT 27.5 % (36-48); HEMOGLOBIN 9.1 g/dL (12.0-16.0); INR 1.2 (0.8-1.2); MEAN CORPUSCULAR HEMOGLOBIN 32 pg (27-31); MEAN CORPUSCULAR HGB CONC 33 % (32-36); MEAN CORPUSCULAR VOLUME 96 fL (79.0-98.0); PLATELET COUNT (AUTO) 88 K/uL (130-430); PROTHROMBIN TIME 13.2 SECS (9.5-12.5); RED BLOOD CELL COUNT(AUTO) 2.86 MIL/uL (4.2-6.2)
[2017-02-07 06:58] LABS: ALANINE AMINOTRANSFERASE 127 U/L (12-78); ALBUMIN 1.4 g/dL (3.4-4.8); ANION GAP 17 (5-15); ASPARTATE AMINOTRANSFERASE 77 U/L (10-37); CALCIUM 7.9 mg/dL (8.4-11.0); CHLORIDE 112 mmol/L (98-107); GLUCOSE 206 mg/dL (70-99); POTASSIUM 3.3 mmol/L (3.5-5.1); SODIUM SERUM 144 mmol/L (136-145); TOTAL BILIRUBIN 2.8 mg/dL (0.0-1.0); TOTAL PROTEIN, SERUM 3.7 g/dL (6.4-8.3)
[2017-02-07 07:08] LABS: UREA NITROGEN, BLOOD 166 mg/dL (8-21)
[2017-02-07 07:23] LABS: WHITE BLOOD COUNT (AUTO) 26.3 K/uL (4.8-10.8)
[2017-02-07 08:20] LABS: ATYPICAL LYMPHOCYTES % 0 % (0-0); BAND % (MANUAL) 2 % (0-6); BASOPHILS % (MANUAL) 0 % (0-2); EOSINOPHILS % (MANUAL) 0 % (0-7); LYMPHOCYTES % (MANUAL) 1 % (20-46); MONOCYTES % (MANUAL) 1 % (0-11)
[2017-02-07 08:29] LABS: ABG TOTAL HEMOGLOBIN 9.4 G/dL (12.0-18.0); BLOOD GAS COHb% 0.3 % (0.5-1.5); BLOOD GAS PH 7.276 (7.350-7.450); BLOOD O2Hb% 96.6 % (94.0-97.0)
[2017-02-07 08:30] LABS: BLOOD GAS HHB 2.2 % (0.0-6.0)
[2017-02-07] MEDS ORDERED: SODIUM BICARBONATE 8.4% JECT 50 MEQ/50 ML SYRINGE IVP ONE (08:45)
[2017-02-07] MEDS: VORICONAZOLE 200 MG TABLET NG SCH (09:08)
[2017-02-07] MEDS ORDERED: CEFEPIME 1 GM in D5W 50 ML IV SCH (10:30)
[2017-02-07] MEDS ORDERED: NOREPINEPHRINE BITARTRATE 4 MG in NS 246 ML IV PRN (10:45)
[2017-02-07] MEDS ORDERED: ATROPINE SULFATE 0.4 MG/ML VIAL ONE (12:05)
[2017-02-07] MEDS ORDERED: PHENYLEPHRINE HCL 10 MG/ML VIAL (NEOSYNEPHRINE) ONE (12:31)
[2017-02-08 07:56] LABS: BLOOD GAS BASE EXCESS -13.1 mmol/L (-3.0-3.0)
== END 2017-02-07 12:35 | disposition expired | DRG 870 ==
LOC: SED 13:03 → SIC 14:40
PROVIDERS: ADMIT Internal Medicine; ATTEND Internal Medicine
PROC: 5A1955Z Respiratory Ventilation, Greater than 96 Consecutive Hours (ICD-10-PCS; 2017-01-23)
PROC: 0BH17EZ Insertion of Endotracheal Airway into Trachea, Via Natural or Artificial Opening (ICD-10-PCS; 2017-01-23)
PROC: 30233L1 Transfusion of Nonautologous Fresh Plasma into Peripheral Vein, Percutaneous Approach (ICD-10-PCS; 2017-02-01)
PROC: 30233N1 Transfusion of Nonautologous Red Blood Cells into Peripheral Vein, Percutaneous Approach (ICD-10-PCS; 2017-02-01)
PROC: 30233R1 Transfusion of Nonautologous Platelets into Peripheral Vein, Percutaneous Approach (ICD-10-PCS; 2017-02-01)
PROC: 06HM33Z Insertion of Infusion Device into Right Femoral Vein, Percutaneous Approach (ICD-10-PCS; principal; 2017-02-02)
PROC: B54BZZA Ultrasonography of Right Lower Extremity Veins, Guidance (ICD-10-PCS; 2017-02-02)
PROC: 5A1D60Z (ICD-10-PCS; 2017-02-02)
PROC: 30233K1 Transfusion of Nonautologous Frozen Plasma into Peripheral Vein, Percutaneous Approach (ICD-10-PCS; 2017-02-04)
DX: A41.9 Sepsis, unspecified organism (principal); G93.41 Metabolic encephalopathy; N17.0 Acute kidney failure with tubular necrosis; J96.00 Acute respiratory failure, unspecified whether with hypoxia or hypercapnia; E05.91 Thyrotoxicosis, unspecified with thyrotoxic crisis or storm; K72.00 Acute and subacute hepatic failure without coma; J69.0 Pneumonitis due to inhalation of food and vomit; K92.2 Gastrointestinal hemorrhage, unspecified; K52.1 Toxic gastroenteritis and colitis; G93.1 Anoxic brain damage, not elsewhere classified; D68.9 Coagulation defect, unspecified; J90 Pleural effusion, not elsewhere classified; I48.91 Unspecified atrial fibrillation; D69.6 Thrombocytopenia, unspecified; E03.9 Hypothyroidism, unspecified; E11.9 Type 2 diabetes mellitus without complications; E78.5 Hyperlipidemia, unspecified; E86.0 Dehydration; D64.9 Anemia, unspecified; E11.65 Type 2 diabetes mellitus with hyperglycemia; E87.6 Hypokalemia; I46.9 Cardiac arrest, cause unspecified; E05.90 Thyrotoxicosis, unspecified without thyrotoxic crisis or storm; T36.1X5A Adverse effect of cephalosporins and other beta-lactam antibiotics, initial encounter; E87.5 Hyperkalemia; Z95.1 Presence of aortocoronary bypass graft; Z98.49 Cataract extraction status, unspecified eye; Z79.899 Other long term (current) drug therapy; Y92.89 Other specified places as the place of occurrence of the external cause
CPT/HCPCS: 36415; 36600; 70450-TC; 71010; 71250-TC; 76536-TC; 76700-TC; 76770; 80048; 80053; 80061; 80074; 80202-TC; 81000-TC; 82140-TC; 82306; 82550-TC; 82553-TC; 82607; 82746; 82803-TC; 82962; 83036; 83540-TC; 83550-TC; 83605; 83615-TC; 83735-TC; 83880; 84100-TC; 84132-TC; 84439; 84443-TC; 84480; 84484; 85007; 85025; 85027; 85044-TC; 85384-TC; 85610-TC; 85730-TC; 86022; 86886; 86900; 86901; 86920; 87040-TC; 87070-TC; 87081; 87086; 87205-TC; 87230-TC; 90935; 90937; 92950; 93005; 93306; 94002; 94003; 94640; 95816; 96361; 96374; 96375; 99285; C1751; C1769; C9113; J0153; J0461; J0610; J0692; J0696; J1265; J1450; J1630; J1644; J1720; J1815; J1940; J1956; J2060; J2185; J2370; J2543; J3370; J3465; J3475; J3480; J3490; J7030; J7040; J7050; J7060; P9021; P9034; P9046; P9059